=== PATIENT | female | born 1935 | race Caucasian/White ===

== ENCOUNTER 2017-05-19 07:52 | Day surgery (SDC) | payer MEDICARE, BC ==
[2017-05-19] MEDS ORDERED: Sodium Chloride 0.9% 10 ML SDV FLUSH PRN (08:30)
--- NOTE | 2017-05-19 11:47 | OR ---
DATE OF PROCEDURE: 05/19/2017 POSTOPERATIVE CARE: Postoperative care will be provided mainly at the [address] [place] [address] [facility] in conjunction with [facility]. PREOPERATIVE DIAGNOSIS: Cataract, left eye. PREOPERATIVE DIAGNOSIS: Cataract, left eye. PROCEDURE: Cataract extraction, phacoemulsification with intraocular lens placement, left eye. ANESTHESIA: Topical and intracameral. ESTIMATED BLOOD LOSS: Minimal. COMPLICATIONS: None. PATHOLOGY SPECIMENS: None. SURGICAL FINDINGS: None. INDICATION FOR PROCEDURE: The patient is a 81-year-old female with history of a visually significant cataract in the left eye, which interfered with activities of daily living. This consisted of a nuclear sclerosis cataract. Following careful discussion of the risks, benefits and alternatives to cataract extraction with intraocular lens placement including blindness and , the patient elected to proceed, and informed, written consent was obtained prior to the procedure. DESCRIPTION OF THE PROCEDURE: The patient was previously identified, and a jin placed above the left eye. All sources, including the patient, indicated that the left eye was the correct eye. The patient was subsequently taken to the operating room where standard monitors were applied. The patient was then prepped and draped in the usual sterile fashion for ophthalmic surgery. Attention was first directed at the 12 o'clock position where a paracentesis port was fashioned. Shugar solution followed by Viscoat was instilled into the eye. Attention was then directed to the 8:30 position where a triplanar incision was made in a near-clear manner using a keratome. A continuous capsulorrhexis was then made using a combination of the cystotome and Utrata forceps. Hydrodissection was achieved using a balanced salt solution, and the lens rotated nicely. Phacoemulsification was then done using a modified etiora-myt-rnaxyrk technique without complication. Phaco time was 8.24 CDE. The remaining cortex was removed using the irrigation/aspiration handpiece. Provisc was then instilled into the eye. A Technis lens, model [id number], at 20.0 diopters was then placed in the capsular bag using an [place] injector. The remaining viscoelastic was removed using the irrigation/aspiration forceps. All wounds were then checked and found to be watertight. The lid speculum and drapes were removed. Maxitrol ointment was placed in the patient's left eye, and the eye was shielded. The patient tolerated the procedure well. The patient was instructed to follow up tomorrow. All needle and sponge counts were correct at the end of the procedure. Kelly Steiner MD /[id number]
== END 2017-05-19 10:01 | disposition home or self-care (01) ==
LOC: JP.SDS 07:52
PROVIDERS: ATTEND Ophthalmology
DX: H25.12 Age-related nuclear cataract, left eye (principal); J44.9 Chronic obstructive pulmonary disease, unspecified; G45.9 Transient cerebral ischemic attack, unspecified
CPT/HCPCS: 66984; C1780; J7050

== ENCOUNTER 2017-06-02 07:56 | Day surgery (SDC) | payer MEDICARE, BC ==
[2017-06-02] MEDS ORDERED: Sodium Chloride 0.9% 10 ML Syringe FLUSH PRN (08:30)
--- NOTE | 2017-06-02 15:16 | OR ---
DATE OF PROCEDURE: 06/02/2017 POSTOPERATIVE CARE: Postoperative care will be provided mainly at the [address] [place] [address] [facility] in conjunction with [facility]. PREOPERATIVE DIAGNOSIS: Cataract, right eye. PREOPERATIVE DIAGNOSIS: Cataract, right eye. PROCEDURE: Phacoemulsification with intraocular lens placement, right eye. ANESTHESIA: Topical and intracameral. ESTIMATED BLOOD LOSS: Minimal. COMPLICATIONS: None. PATHOLOGY SPECIMENS: None. SURGICAL FINDINGS: None. INDICATION FOR PROCEDURE: The patient is a 81-year-old female with history of a visually significant cataract in the right eye, which interfered with activities of daily living. This consisted of a nuclear sclerosis cataract. Following careful discussion of the risks, benefits and alternatives to cataract extraction with intraocular lens placement including blindness and , the patient elected to proceed, and informed, written consent was obtained prior to the procedure. DESCRIPTION OF THE PROCEDURE: The patient was previously identified, and a jin placed above the right eye. All sources, including the patient, indicated that the right eye was the correct eye. The patient was subsequently taken to the operating room where standard monitors were applied. The patient was then prepped and draped in the usual sterile fashion for ophthalmic surgery. Attention was first directed at the 12 o'clock position where a paracentesis port was fashioned. Shugar solution followed by Viscoat was instilled into the eye. Attention was then directed to the 8:30 position where a triplanar incision was made in a near-clear manner using a keratome. A continuous capsulorrhexis was then made using a combination of the cystotome and Utrata forceps. Hydrodissection was achieved using a balanced salt solution, and the lens rotated nicely. Phacoemulsification was then done using a modified sodxag-ark-nwmroaz technique without complication. Phaco time was 8.24 CDE. The remaining cortex was removed using the irrigation/aspiration handpiece. Provisc was then instilled into the eye. A Technis lens, model [id number], at 21.0 diopters was then placed in the capsular bag using an [place] injector. The remaining viscoelastic was removed using the irrigation/aspiration forceps. All wounds were then checked and found to be watertight. The lid speculum and drapes were removed. Maxitrol ointment was placed in the patient's right eye, and the eye was shielded. The patient tolerated the procedure well. The patient was instructed to follow up tomorrow. All needle and sponge counts were correct at the end of the procedure. Kelly Steiner MD /[id number]
== END 2017-06-02 10:41 | disposition home or self-care (01) ==
LOC: JP.SDS 07:56
PROVIDERS: ATTEND Ophthalmology
DX: H25.11 Age-related nuclear cataract, right eye (principal); J44.9 Chronic obstructive pulmonary disease, unspecified; Z85.038 Personal history of other malignant neoplasm of large intestine; Z86.73 Personal history of transient ischemic attack (TIA), and cerebral infarction without residual deficits
CPT/HCPCS: 66984; C1780; J7050

== ENCOUNTER 2018-07-22 20:04 | Emergency (ER) | payer MEDICARE, BC ==
[2018-07-22] MEDS ORDERED: Sodium Chloride 0.9% 10 ML Syringe FLUSH PRN ×2 (21:23)
[2018-07-22] MEDS ORDERED: methylPREDNISolone Sodium Succinate 125 MG/2 ML SDV IVPUSH ONE (21:24)
[2018-07-22] MEDS ORDERED: Albuterol/Ipratropium 3.0-0.5 MG/3 ML Neb Soln NEB ONE (21:24)
[2018-07-22] MEDS ORDERED: diphenhydrAMINE 50 MG/ML SDV IVPUSH ONE (21:26)
--- NOTE | 2018-07-22 21:27 | EDM.PDOC ---
ED HPI GENERAL MEDICAL PROBLEM - General Chief Complaint: Respiratory Problem Stated Complaint: ILLNESS SOB Time Seen by Provider: 07/22/18 21:19 Source of Information: Reports: Patient, Family, RN Notes Reviewed History Limitations: Reports: No Limitations - History of Present Illness INITIAL COMMENTS - FREE TEXT/NARRATIVE: 82-year-old female presents to the emergency department day complaint of shortness of breath, she has a known history of COPD she has progressively been getting more short of breath over the last week or so wheezing cough with white sputum production. - Related Data Allergies Allergy/AdvReac Type Severity Reaction Status Date / Time adhesive tape Allergy Rash Verified 03/14/18 12:55 Iodinated Contrast- Oral and Allergy Rash Verified 03/14/18 12:55 IV Dye loteprednol [From Lotemax] Allergy Rash Verified 07/22/18 21:05 prednisone Allergy Rash Verified 03/14/18 12:55 Sulfa (Sulfonamide Allergy Rash Verified 03/14/18 12:55 Antibiotics) Home Meds: Home Meds Fluticasone Propionate [Flovent HFA 44 mcg] 2 spray IH DAILY 07/16/13 [History] Multivitamin [Multi-Vitamin Daily] 1 tab PO DAILY 07/16/13 [History] [place]-3/DHA/Epa/Fish Oil [Fish Oil Dr 500 mg Softgel] 1,200 mg PO DAILY [History] Aspirin [Children's Aspirin] 81 mg PO DAILY 05/16/17 [History] Fluticasone/Salmeterol [Advair 500-50] 1 puff INH DAILY 05/16/17 [History] atorvaSTATin [Lipitor] 10 mg PO BEDTIME 05/16/17 [History] Ipratropium/Albuterol Sulfate [Combivent Respimat Inhal [place]] 4 gm IH QID 12/26 [History] Fluticasone/Salmeterol [Advair 500-50] 1 puff INH DAILY 07/22/18 [History] Past Medical History HEENT History: Reports: Cataract, Hard of Hearing, Impaired Vision Cardiovascular History: Reports: Heart Murmur, High Cholesterol Respiratory History: Reports: Asthma, Bronchitis, Recurrent, COPD, Other (See Below) Other Respiratory History: home O2 at night Gastrointestinal History: Reports: Colon Polyp, Hemorrhoids, Other (See Below) Other Gastrointestinal History: hx of colon cancer 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: Musculoskeletal History: Reports: Back Pain, Chronic, Osteoarthritis Neurological History: Reports: Cerebral Aneurysms, Headaches, Chronic Psychiatric History: Reports: Depression, Panic Attack Oncologic (Cancer) History: Reports: Colon - Infectious Disease History Infectious Disease History: Reports: Chicken Pox, Measles, Mumps, Shingles - Past Surgical History HEENT Surgical History: Reports: Adenoidectomy, Cataract Surgery, Tonsillectomy GI Surgical History: Reports: Colon, Colonoscopy, EGD, Hernia, Inguinal, Other ( See Below) Other GI Surgeries/Procedures: hemorrhoidectomy, colon resection Female Surgical History: Reports: None Musculoskeletal Surgical History: Reports: Other (See Below) Other Musculoskeletal Surgeries/Procedures:: left foot surgery Dermatological Surgical History: Reports: None Social & Family History - Family History Family Medical History: Noncontributory - Tobacco Use Smoking Status *Q: Never Smoker - Caffeine Use Caffeine Use: Reports: Coffee - Recreational Drug Use Recreational Drug Use: No ED ROS GENERAL - Review of Systems Review Of Systems: See Below Constitutional: Reports: No Symptoms HEENT: Reports: No Symptoms Respiratory: Reports: Shortness of Breath, Cough, Sputum Cardiovascular: Reports: Dyspnea on Exertion GI/Abdominal: Reports: No Symptoms : Reports: No Symptoms ED EXAM, GENERAL - Physical Exam Exam: See Below Exam Limited By: No Limitations General Appearance: Alert, WD/WN, No Apparent Distress Head: Atraumatic, Normocephalic Neck: Normal Inspection, Supple, Non-Tender, Full Range of Motion Respiratory/Chest: Decreased Breath Sounds, Wheezing Cardiovascular: Regular Rate, Rhythm, No Murmur GI/Abdominal: Soft, Non-Tender Course - Vital Signs Last Recorded V/S: Last Vital Signs Temp 99.2 F 07/22/18 21:01 Pulse 86 07/22/18 21:01 Resp 18 07/22/18 22:34 BP 162/66 H 07/22/18 21:01 Pulse Ox 90 L 07/22/18 22:37 - Orders/Labs/Meds Orders: Active Orders 24 hr Category Date Time Status Oxygen Therapy Adult [Oxygen Therapy, ED] [RC] Care 07/22/18 22:35 Active ASDIRECTED Peripheral IV Care [RC] . DIRECTED Care 07/22/18 21:23 Active RT Aerosol Therapy [RC] ASDIRECTED Care 04/27/19 21:24 Active Peripheral IV Insertion Adult [OM.PC] Urgent Oth 07/22/18 21:23 Ordered Labs: Laboratory Tests 07/22/18 07/22/18 Range/Units 21:38 21:38 WBC 10.7 (4.5-11.0) K/uL RBC 5.32 (3.30-5.50) M/uL Hgb 14.9 D (12.0-15.0) g/dL Hct 46.5 (36.0-48.0) % MCV 87 (80-98) fL MCH 28 (27-31) pg MCHC 32 (32-36) % Plt Count 155 (150-400) K/uL Neut % (Auto) 76 H (36-66) % Lymph % (Auto) 12 L (24-44) % [place] % (Auto) 12 H (2-6) % Eos % (Auto) 0 L (2-4) % Baso % (Auto) 0 (0-1) % Sodium 138 L (140-148) mmol/L Potassium 4.3 (3.6-5.2) mmol/L Chloride 100 (100-108) mmol/L Carbon Dioxide 30 (21-32) mmol/L Anion Gap 12.3 (5.0-14.0) mmol/L BUN 13 (7-18) mg/dL Creatinine 0.7 (0.6-1.0) mg/dL Est Cr Clr Drug Dosing 53.02 mL/min Estimated GFR (MDRD) > 60 (>60) Glucose 143 H (74-106) mg/dL Calcium 8.9 (8.5-10.1) mg/dL Total Bilirubin 0.4 (0.2-1.0) mg/dL AST 28 (15-37) U/L ALT 28 (12-78) U/L Alkaline Phosphatase 75 (46-116) U/L Troponin I < 0.017 (0.000-0.056) ng/mL Total Protein 7.3 (6.4-8.2) g/dL Albumin 3.3 L (3.4-5.0) g/dL Globulin 4.0 H (2.3-3.5) g/dL Albumin/Globulin Ratio 0.8 L (1.2-2.2) Meds: Medications Discontinued Medications Generic Name Dose Route Start Last Admin Trade Name Freq PRN Reason Stop Dose Admin Albuterol/Ipratropium 3 ml 07/22/18 21:24 07/22/18 21:40 Duoneb 3.0-0.5 Mg/3 Ml NEB 07/22/18 21:25 3 ml ONETIME ONE Administration Diphenhydramine HCl 25 mg 07/22/18 21:26 07/22/18 22:27 Benadryl IVPUSH 07/22/18 21:27 25 mg ONETIME ONE Administration Methylprednisolone Sodium Succinate 125 mg 07/22/18 21:24 07/22/18 22:27 Solu-Medrol IVPUSH 07/22/18 21:25 125 mg ONETIME ONE Administration Sodium Chloride 10 ml 07/22/18 21:23 07/22/18 22:27 Saline Flush FLUSH 10 ml ASDIRECTED PRN Administration Keep Vein Open Sodium Chloride 10 ml 07/22/18 21:23 07/22/18 22:29 Saline Flush FLUSH 10 ml ASDIRECTED PRN Administration Keep Vein Open Departure - Departure Time of Disposition: 18:55 Disposition: Home, Self-Care 01 Condition: Fair Clinical Impression: COPD exacerbation - Discharge Information Referrals: Ivone Bialey PA-C [Primary Care Provider] - Forms: ED Department Discharge - My Orders Last 24 Hours: My Active Orders 07/22/18 21:23 Peripheral IV Care [RC] . DIRECTED Peripheral IV Insertion Adult [OM.PC] Urgent 07/22/18 21:24 RT Aerosol Therapy [RC] ASDIRECTED 07/22/18 22:35 Oxygen Therapy Adult [Oxygen Therapy, ED] [RC] ASDIRECTED - Assessment/Plan Last 24 Hours: My Active Orders 07/22/18 21:23 Peripheral IV Care [RC] . DIRECTED Peripheral IV Insertion Adult [OM.PC] Urgent 07/22/18 21:24 RT Aerosol Therapy [RC] ASDIRECTED 07/22/18 22:35 Oxygen Therapy Adult [Oxygen Therapy, ED] [RC] ASDIRECTED Plan: Assessment Acuity = acute Site and laterality = COPD exacerbation Etiology = unclear etiology Manifestations = dyspnea Location of injury = Home Lab values = CBC CMP unremarkable troponin was negative chest x-ray shows no acute process does show mild emphysema Plan She was given 125 mg Solu-Medrol 1+25 mg Benadryl discharge home with doxycycline 100 mg by mouth twice a day 10 days follow-up primary care 3-5 days This note was dictated using [employer] voice recognition software please call with any questions on syntax or grammar.
--- NOTE | 2018-07-22 22:37 | CRLCR ---
INDICATION: Shortness of breath. COMPARISON: 13 October 2015. IMPRESSION : No acute cardiopulmonary disease. No significant change from comparison. Mild emphysema. Dictated by Yusuf Carlos MD @ Jul 22 2018 10:34PM Signed by Dr. Yusuf Carlos @ Jul 22 2018 10:35PM
== END 2018-07-22 23:30 | disposition home or self-care (01) ==
LOC: JP.ED 20:04
DX: J44.1 Chronic obstructive pulmonary disease with (acute) exacerbation (principal); M19.90 Unspecified osteoarthritis, unspecified site; Z79.82 Long term (current) use of aspirin; Z79.899 Other long term (current) drug therapy; Z98.49 Cataract extraction status, unspecified eye; Z98.890 Other specified postprocedural states; Z91.09 Other allergy status, other than to drugs and biological substances; Z91.041 Radiographic dye allergy status; Z88.2 Allergy status to sulfonamides; Z88.8 Allergy status to other drugs, medicaments and biological substances
CPT/HCPCS: 36415; 71046; 80053; 84484; 85025; 94640; 96374; 96375; 99284; J1200; J2930; J7620-GY

== ENCOUNTER 2020-09-22 20:05 | Inpatient (IN) | payer MEDICARE, BC ==
[2020-09-22] MEDS ORDERED: Sodium Chloride 0.9% 10 ML Syringe FLUSH PRN (20:43)
[2020-09-22] MEDS ORDERED: Lactated Ringers 1,000 ML IV ONE (20:44)
--- NOTE | 2020-09-22 20:49 | EDM.PDOC ---
ED HPI GENERAL MEDICAL PROBLEM - General Chief Complaint: Gastrointestinal Problem Stated Complaint: BLOOD CLOT ISSUE Time Seen by Provider: 09/22/20 20:09 Source of Information: Reports: Patient, Family, RN Notes Reviewed History Limitations: Reports: No Limitations - History of Present Illness INITIAL COMMENTS - FREE TEXT/NARRATIVE: 85-year-old female presents emergency department day complaint of bright red blood per rectum, she has had this in the past last was about 2 years ago thought to be diverticular in nature. She has had a total of 5 loose bloody stools today. So far is not feeling lightheaded or dizzy at this time. Has had a cough for the last week or so feels more short of breath than usual does have COPD. - Related Data Allergies Allergy/AdvReac Type Severity Reaction Status Date / Time adhesive tape Allergy Rash Verified 09/22/20 20:28 Iodinated Contrast Media Allergy Rash Verified 09/22/20 20:28 [Iodinated Contrast- Oral and IV Dye] loteprednol [From Lotemax] Allergy Rash Verified 09/22/20 20:28 prednisone Allergy Rash Verified 09/22/20 20:28 Sulfa (Sulfonamide Allergy Rash Verified 09/22/20 20:28 Antibiotics) Home Meds: Home Meds Multivitamin [Multi-Vitamin Daily] 1 tab PO DAILY 07/16/13 [History] [place]-3/DHA/Epa/Fish Oil [Fish Oil Dr 500 mg Softgel] 1,200 mg PO DAILY 07/16/13 [History] Aspirin [Children's Aspirin] 81 mg PO DAILY 05/16/17 [History] Fluticasone/Salmeterol [Advair 500-50] 1 puff INH DAILY 05/16/17 [History] atorvaSTATin [Lipitor] 10 mg PO BEDTIME 05/16/17 [History] Ipratropium/Albuterol Sulfate [Combivent Respimat Inhal Finley] 4 gm IH QID 12/26/17 [History] Fluticasone/Salmeterol [Advair 500-50] 1 puff INH DAILY 07/22/18 [History] Ascorbate Calcium [Vitamin C] 500 mg PO DAILY 09/22/20 [History] Past Medical History HEENT History: Reports: Cataract, Hard of Hearing, Impaired Vision Cardiovascular History: Reports: Heart Murmur, High Cholesterol Respiratory History: Reports: Asthma, Bronchitis, Recurrent, COPD, Other (See Below) Other Respiratory History: home O2 at night Gastrointestinal History: Reports: Colon Polyp, Hemorrhoids, Other (See Below) Other Gastrointestinal History: hx of colon cancer [employer] REPA[employer]ER History: Reports: Musculoskeletal History: Reports: Back Pain, Chronic, Osteoarthritis Neurological History: Reports: Cerebral Aneurysms, Headaches, Chronic Psychiatric History: Reports: Depression, Panic Attack Oncologic (Cancer) History: Reports: Colon - Infectious Disease History Infectious Disease History: Reports: Chicken Pox, Measles, Mumps, Shingles - Past Surgical History Head Surgeries/Procedures: Reports: None HEENT Surgical History: Reports: Adenoidectomy, Cataract Surgery, Tonsillectomy Cardiovascular Surgical History: Reports: None Respiratory Surgical History: Reports: None GI Surgical History: Reports: Colon, Colonoscopy, EGD, Hernia, Inguinal, Other (See Below) Other GI Surgeries/Procedures: hemorrhoidectomy, colon resection Female Surgical History: Reports: None Neurological Surgical History: Reports: None Musculoskeletal Surgical History: Reports: Other (See Below) Other Musculoskeletal Surgeries/Procedures:: left foot surgery Oncologic Surgical History: Reports: None Dermatological Surgical History: Reports: None Social & Family History - Family History Family Medical History: No Pertinent Family History - Tobacco Use Tobacco Use Status *Q: Former Tobacco User Used Tobacco, but Quit: Yes Month/Year Tobacco Last Used: 05/18 - Caffeine Use Caffeine Use: Reports: Coffee - Recreational Drug Use Recreational Drug Use: No ED ROS GENERAL - Review of Systems Review Of Systems: See Below Constitutional: Reports: No Symptoms HEENT: Reports: No Symptoms Respiratory: Reports: Shortness of Breath, Cough. Denies: Sputum Cardiovascular: Reports: No Symptoms GI/Abdominal: Reports: Abdominal Pain (Cramping), Bloody Stool. Denies: Constipation, Diarrhea, Nausea : Reports: No Symptoms ED EXAM, GI/ABD - Physical Exam Exam: See Below Exam Limited By: No Limitations General Appearance: Alert, WD/WN, No Apparent Distress Respiratory/Chest: Chest Non-Tender, Decreased Breath Sounds. No: Respiratory Distress, Crackles, Rales, Rhonchi Cardiovascular: Regular Rate, Rhythm, No Murmur GI/Abdominal Exam: Soft, Non-Tender Rectal (Female) Exam: Normal Rectal Tone, Bloody Stool Course - Vital Signs Last Recorded V/S: Last Vital Signs Temp 97.4 F 09/23/20 15:22 Pulse 73 09/23/20 15:22 Resp 16 09/23/20 15:22 BP 153/48 H 09/23/20 15:22 Pulse Ox 97 09/23/20 15:22 - Orders/Labs/Meds Orders: Active Orders 24 hr Category Date Time Status RT Aerosol Therapy [RC] ASDIRECTED Care 09/22/20 22:47 Active Sodium Chloride 0.9% [Saline Flush] Med 09/22/20 20:43 Active 10 ml FLUSH ASDIRECTED PRN Peripheral IV Insertion Adult [OM.PC] Urgent Oth 09/22/20 20:43 Ordered Peripheral IV Insertion Adult [OM.PC] Urgent Oth 09/22/20 20:44 Ordered Medication Orders Acetaminophen (Acetaminophen 325 Mg Tab) 650 mg PO Q4H PRN PRN Reason: Pain (Mild 1-3)/fever Albuterol (Albuterol 0.083% 2.5 Mg/3 Ml Neb Soln) 2.5 mg NEB Q4H PRN PRN Reason: Shortness Of Breath/wheezing Albuterol/Ipratropium (Albuterol/Ipratropium 3.0-0.5 Mg/3 Ml Neb Soln) 3 ml NEB QIDRT [facility] Last Admin: 09/23/20 14:40 Dose: 3 ml Documented by: Admin: 09/23/20 10:58 Dose: 3 ml Documented by: Admin: 09/23/20 06:04 Dose: Not Given Documented by: Admin: 09/23/20 05:54 Dose: 3 ml Documented by: SIERRA Melatonin (Melatonin 3 Mg Tab) 6 mg PO BEDTIME PRN PRN Reason: Insomnia Morphine Sulfate (Morphine 2 Mg/Ml Syringe) 2 mg IVPUSH Q2H PRN PRN Reason: Pain (severe 7-10) Ondansetron HCl (Ondansetron 4 Mg Tab.Dis) 4 mg PO Q6H PRN PRN Reason: Nausea able to take PO Oxycodone HCl (Oxycodone 5 Mg Tab) 5 mg PO Q4H PRN PRN Reason: Pain (moderate 4-6) Pantoprazole Sodium (Pantoprazole 40 Mg Vial) 40 mg IV DAILY [facility] Last Admin: 09/23/20 10:12 Dose: 40 mg Documented by: LARSRIT Sodium Chloride (Sodium Chloride 0.9% 10 Ml Syringe) 10 ml FLUSH ASDIRECTED PRN PRN Reason: Keep Vein Open Last Admin: 09/22/20 21:46 Dose: 10 ml Documented by: YANICK Labs: Laboratory Tests 09/22/20 09/22/20 09/22/20 Range/Units 21:07 21:07 21:07 WBC 9.7 (4.5-11.0) K/uL RBC 4.76 (3.30-5.50) M/uL Hgb 14.1 (12.0-15.0) g/dL Hct 42.4 (36.0-48.0) % MCV 89 (80-98) fL MCH 30 (27-31) pg MCHC 33 (32-36) % Plt Count 207 (150-400) K/uL Neut % (Auto) 71.4 H (36-66) % Lymph % (Auto) 19.4 L (24-44) % Shelby % (Auto) 8.7 H (2-6) % Eos % (Auto) 0.2 L (2-4) % Baso % (Auto) 0.3 (0-1) % PT 11.1 (9.5-12.0) sec INR 1.02 (0.80-1.20) Sodium 143 (140-148) mmol/L Potassium 3.8 (3.6-5.2) mmol/L Chloride 104 (100-108) mmol/L Carbon Dioxide 30 (21-32) mmol/L Anion Gap 8.9 (5.0-14.0) mmol/L BUN 18 (7-18) mg/dL Creatinine 0.7 (0.6-1.0) mg/dL Est Cr Clr Drug Dosing 50.37 mL/min Estimated GFR (MDRD) > 60 (>60) Glucose 99 (74-106) mg/dL Calcium 8.4 L (8.5-10.1) mg/dL Total Bilirubin 0.4 (0.2-1.0) mg/dL AST 20 (15-37) U/L ALT 28 (12-78) U/L Alkaline Phosphatase 79 (46-116) U/L Total Protein 6.5 (6.4-8.2) g/dL Albumin 3.4 (3.4-5.0) g/dL Globulin 3.1 (2.3-3.5) g/dL Albumin/Globulin Ratio 1.1 L (1.2-2.2) Blood Type Gel Antibody Screen 09/22/20 Range/Units 21:07 WBC (4.5-11.0) K/uL RBC (3.30-5.50) M/uL Hgb (12.0-15.0) g/dL Hct (36.0-48.0) % MCV (80-98) fL MCH (27-31) pg MCHC (32-36) % Plt Count (150-400) K/uL Neut % (Auto) (36-66) % Lymph % (Auto) (24-44) % Shelby % (Auto) (2-6) % Eos % (Auto) (2-4) % Baso % (Auto) (0-1) % PT (9.5-12.0) sec INR (0.80-1.20) Sodium (140-148) mmol/L Potassium (3.6-5.2) mmol/L Chloride (100-108) mmol/L Carbon Dioxide (21-32) mmol/L Anion Gap (5.0-14.0) mmol/L BUN (7-18) mg/dL Creatinine (0.6-1.0) mg/dL Est Cr Clr Drug Dosing mL/min Estimated GFR (MDRD) (>60) Glucose (74-106) mg/dL Calcium (8.5-10.1) mg/dL Total Bilirubin (0.2-1.0) mg/dL AST (15-37) U/L ALT (12-78) U/L Alkaline Phosphatase (46-116) U/L Total Protein (6.4-8.2) g/dL Albumin (3.4-5.0) g/dL Globulin (2.3-3.5) g/dL Albumin/Globulin Ratio (1.2-2.2) Blood Type O POSITIVE Gel Antibody Screen Negative Meds: Medications Generic Name Dose Route Start Last Admin Trade Name Freq PRN Reason Stop Dose Admin Acetaminophen 650 mg 09/22/20 23:46 Acetaminophen 325 Mg Tab PO Q4H PRN Pain (Mild 1-3)/fever Albuterol 2.5 mg 09/22/20 23:46 Albuterol 0.083% 2.5 Mg/3 Ml Neb Soln NEB Q4H PRN Shortness Of Breath/wheezing Albuterol/Ipratropium 3 ml 09/23/20 07:00 09/23/20 14:40 Albuterol/Ipratropium 3.0-0.5 Mg/3 Ml Neb Soln NEB 3 ml QIDRT MICHAEL Administration Melatonin 6 mg 09/22/20 23:46 Melatonin 3 Mg Tab PO BEDTIME PRN Insomnia Morphine Sulfate 2 mg 09/22/20 23:46 Morphine 2 Mg/Ml Syringe IVPUSH Q2H PRN Pain (severe 7-10) Ondansetron HCl 4 mg 09/22/20 23:46 Ondansetron 4 Mg Tab.Dis PO Q6H PRN Nausea able to take PO Oxycodone HCl 5 mg 09/22/20 23:46 Oxycodone 5 Mg Tab PO Q4H PRN Pain (moderate 4-6) Pantoprazole Sodium 40 mg 09/23/20 09:00 09/23/20 10:12 Pantoprazole 40 Mg Vial IV 40 mg DAILY MICHAEL Administration Sodium Chloride 10 ml 09/22/20 20:43 09/22/20 21:46 Sodium Chloride 0.9% 10 Ml Syringe FLUSH 10 ml ASDIRECTED PRN Administration Keep Vein Open Discontinued Medications Generic Name Dose Route Start Last Admin Trade Name Freq PRN Reason Stop Dose Admin Albuterol 2.5 mg 09/22/20 22:47 09/22/20 23:06 Albuterol 0.083% 2.5 Mg/3 Ml Neb Soln NEB 09/22/20 22:48 2.5 mg ONETIME ONE Administration Albuterol/Ipratropium 3 ml 09/23/20 06:00 Albuterol/Ipratropium 3.0-0.5 Mg/3 Ml Neb Soln NEB QID MICHAEL Bisacodyl 10 mg 09/23/20 13:00 09/23/20 13:16 Bisacodyl 5 Mg Tab PO 09/23/20 13:01 10 mg ONETIME ONE Administration Lactated Ringer's 1,000 mls @ 999 mls/hr 09/22/20 20:44 09/22/20 21:12 Ringers, Lactated IV 09/22/20 21:44 600 mls/hr BOLUS ONE Infusion Sodium Chloride 1,000 mls @ 100 mls/hr 09/22/20 23:46 09/23/20 10:12 Normal Saline IV 100 mls/hr ASDIRECTED MICHAEL Administration Ceftriaxone Sodium 1 gm/ 50 mls @ 200 mls/hr 09/22/20 23:46 09/23/20 00:24 Sodium Chloride IV 09/29/20 23:47 200 mls/hr Q24H MICHAEL Administration Pantoprazole Sodium 80 mg/ 100 mls @ 200 mls/hr 09/22/20 23:46 09/23/20 00:24 Sodium Chloride IV 09/23/20 00:15 200 mls/hr .BOLUS ONE Administration Ceftriaxone Sodium 1 gm/ 50 mls @ 100 mls/hr 09/23/20 21:00 Sodium Chloride IV Q24H MICHAEL Pantoprazole Sodium Confirm 09/23/20 00:11 09/23/20 00:25 Pantoprazole 40 Mg Vial Administered 09/23/20 00:12 Not Given Dose 80 mg .ROUTE .STK-MED ONE Pantoprazole Sodium Confirm 09/23/20 00:12 09/23/20 00:25 Pantoprazole 40 Mg Vial Administered 09/23/20 00:13 Not Given Dose 40 mg .ROUTE .STK-MED ONE Polyethylene Glycol 238 gm 09/23/20 14:00 09/23/20 13:16 Polyethylene Glycol 3350 Powder 238 Gm Bot PO 09/23/20 14:01 238 gm ONETIME ONE Administration Departure - Departure Time of Disposition: 18:04 Disposition: Admitted As Inpatient 68 Condition: Fair Clinical Impression: GI bleed Qualifiers: GI bleed type/associated pathology: unspecified gastrointestinal hemorrhage type Qualified Code(s): K92.2 - Gastrointestinal hemorrhage, unspecified - Discharge Information Sepsis Event Note (ED) - Evaluation Sepsis Screening Result: No Definite Risk - My Orders Last 24 Hours: My Active Orders 09/22/20 20:43 Sodium Chloride 0.9% [Saline Flush] 10 ml FLUSH ASDIRECTED PRN Peripheral IV Insertion Adult [OM.PC] Urgent 09/22/20 20:44 Peripheral IV Insertion Adult [OM.PC] Urgent - Assessment/Plan Last 24 Hours: My Active Orders 09/22/20 20:43 Sodium Chloride 0.9% [Saline Flush] 10 ml FLUSH ASDIRECTED PRN Peripheral IV Insertion Adult [OM.PC] Urgent 09/22/20 20:44 Peripheral IV Insertion Adult [OM.PC] Urgent Plan: Assessment Acuity = acute Site and laterality = bright red blood per rectum Etiology = unknown Manifestations = none Location of injury = Home Lab values = CBC, CMP unremarkable Plan Call discussed case with hospitalist on-call at 1999 kindly agreed to come evaluate patient emergency This note was dictated using Rebit voice recognition software please call with any questions on syntax or grammar.
[2020-09-22] MEDS ORDERED: Albuterol 0.083% 2.5 MG/3 ML Neb Soln NEB ONE (22:47)
--- NOTE | 2020-09-22 23:16 | PCM.HP.2 ---
H&P History of Present Illness - General Date of Service: 09/22/20 Admit Problem/Dx: Admission Diagnosis/Problem Admission Diagnosis/Problem Gastrointestinal hemorrhage Source of Information: Patient, Family (Daughter) History Limitations: Reports: No Limitations - History of Present Illness Initial Comments - Free Text/Narative: chief complaint: bloody stools. This is a 85 year old female presents to the ER with Daughter, with concerns of 5 bloody stools started at 4:30 pm. today. She denies any nausea, vomiting, but has had a upset stomach for a few days. She has COPD and feels that has been worse the past month with increase shortness of breath and generalized not feeling well. denies chest pain, dizziness or weakness. previous tobacco use- but has quit 2 months ago Onset of Symptoms: Reports: Today Symptom Onset Date: 09/22/20 Symptom Onset Time: 16:30 Duration of Symptoms: Reports: Resolved Prior to Arrival Location: Reports: Abdomen Quality: Reports: Same as Previous Episode (reports 2 years ago had di verticulitis and stomach ulcer) Severity: Moderate Improves with: Reports: None Worsens with: Reports: None Associated Symptoms: Reports: No Other Symptoms - Related Data Allergies/Adverse Reactions: Allergies Allergy/AdvReac Type Severity Reaction Status Date / Time adhesive tape Allergy Rash Verified 09/22/20 20:28 Iodinated Contrast Media Allergy Rash Verified 09/22/20 20:28 [Iodinated Contrast- Oral and IV Dye] loteprednol [From Lotemax] Allergy Rash Verified 09/22/20 20:28 prednisone Allergy Rash Verified 09/22/20 20:28 Sulfa (Sulfonamide Allergy Rash Verified 09/22/20 20:28 Antibiotics) Home Medications: Home Meds Multivitamin [Multi-Vitamin Daily] 1 tab PO DAILY 07/16/13 [History] [place]-3/DHA/Epa/Fish Oil [Fish Oil Dr 500 mg Softgel] 1,200 mg PO DAILY 07/16/13 [History] Aspirin [Children's Aspirin] 81 mg PO DAILY 05/16/17 [History] Fluticasone/Salmeterol [Advair 500-50] 1 puff INH DAILY 05/16/17 [History] atorvaSTATin [Lipitor] 10 mg PO BEDTIME 05/16/17 [History] Ipratropium/Albuterol Sulfate [Combivent Respimat Inhal [place]] 4 gm IH QID 12/26/17 [History] Fluticasone/Salmeterol [Advair 500-50] 1 puff INH DAILY 07/22/18 [History] Ascorbate Calcium [Vitamin C] 500 mg PO DAILY 09/22/20 [History] Past Medical History HEENT History: Reports: Cataract, Hard of Hearing, Impaired Vision Cardiovascular History: Reports: Heart Murmur, High Cholesterol Respiratory History: Reports: Asthma, Bronchitis, Recurrent, COPD, Other (See Below) Other Respiratory History: home O2 at night Gastrointestinal History: Reports: Colon Polyp, Hemorrhoids, Other (See Below) Other Gastrointestinal History: hx of colon cancer [employer]PER[employer] History: Reports: Musculoskeletal History: Reports: Back Pain, Chronic, Osteoarthritis Neurological History: Reports: Cerebral Aneurysms, Headaches, Chronic Psychiatric History: Reports: Depression, Panic Attack Oncologic (Cancer) History: Reports: Colon - Infectious Disease History Infectious Disease History: Reports: Chicken Pox, Measles, Mumps, Shingles - Past Surgical History Head Surgeries/Procedures: Reports: None HEENT Surgical History: Reports: Adenoidectomy, Cataract Surgery, Tonsillectomy Cardiovascular Surgical History: Reports: None Respiratory Surgical History: Reports: None GI Surgical History: Reports: Colon, Colonoscopy, EGD, Hernia, Inguinal, Other ( See Below) Other GI Surgeries/Procedures: hemorrhoidectomy, colon resection Female Surgical History: Reports: None Neurological Surgical History: Reports: None Musculoskeletal Surgical History: Reports: Other (See Below) Other Musculoskeletal Surgeries/Procedures:: left foot surgery Oncologic Surgical History: Reports: None Dermatological Surgical History: Reports: None Social & Family History - Family History Family Medical History: No Pertinent Family History - Tobacco Use Tobacco Use Status *Q: Former Tobacco User Used Tobacco, but Quit: Yes Month/Year Tobacco Last Used: 05/18 - Caffeine Use Caffeine Use: Reports: Coffee - Recreational Drug Use Recreational Drug Use: No - Living Situation & Occupation Living situation: Reports: Alone (lives alone between [facility] by [place] Pleitez. Has 5 children who check on her and assist her as needed.) H&P Review of Systems - Review of Systems: Review Of Systems: See Below General: Reports: Other (reports bloody stools x 5 and worsen shortness of breath - has COPD) HEENT: Reports: Glasses Pulmonary: Reports: Shortness of Breath (chronic from COPD), Wheezing (chronic COPD) Cardiovascular: Reports: No Symptoms Gastrointestinal: Reports: Abdominal Pain (upset stomach), Bloody Stool (5 bloody stool starting at 4:30 pm, none since arrival to ER) Genitourinary: Reports: No Symptoms Musculoskeletal: Reports: No Symptoms Skin: Reports: No Symptoms Psychiatric: Reports: No Symptoms Neurological: Reports: No Symptoms Hematologic/Lymphatic: Reports: No Symptoms Immunologic: Reports: Anaphylaxis (multi allergies) Exam - Exam Exam: See Below - Vital Signs Vital Signs: Last Vital Signs Temp 97.3 F 09/22/20 20:31 Pulse 73 09/22/20 22:00 Resp 16 09/22/20 20:31 BP 145/55 H 09/22/20 22:00 Pulse Ox 94 L 09/22/20 22:00 Weight: 148 lb - Exam Quality Assessment: Supplemental Oxygen (O2 at 2 liter per NC) General: Alert, Oriented, Other (pleasant, neat and well groomed. polite, no distress noted) HEENT: PERRLA, Hearing Intact, Mucosa Moist & Arc[place], Nares Patent, Normal Nasal Septum, Posterior Pharynx Clear, Conjunctiva Clear, EOMI, EACs Clear, TMs Clear Neck: Supple, Trachea Midline, 2 Lungs: Normal Respiratory Effort, Decreased Breath Sounds, Crackles, Wheezing Cardiovascular: Regular Rate, Regular Rhythm, Normal S1, Normal S2 GI/Abdominal Exam: Normal Bowel Sounds, Soft, Non-Tender, No Distention, No Abnormal Bruit (Female) Exam: Deferred Rectal (Female) Exam: Deferred Extremities: Normal Inspection, Normal Range of Motion, Non-Tender, No Pedal Edema, Normal Capillary Refill Peripheral Pulses: 2+: Radial (L), Radial (R), Dorsalis Pedis (L), Dorsalis Pedis (R) Skin: Warm, Dry, Intact Neurological: Cranial Nerves Intact, Reflexes Equal Bilateral Neuro Extensive - Mental Status: Alert, Oriented x3, Normal Mood/Affect, Normal Cognition Neuro Extensive - Motor, Sensory, Reflexes: CN II-XII Intact, Normal Gait, Normal Reflexes Psychiatric: Alert, Normal Affect, Normal Mood - Patient Data Lab Results Last 24 hrs: Laboratory Results - last 24 hr 09/22/20 09/22/20 09/22/20 Range/Units 21:07 21:07 21:07 WBC 9.7 (4.5-11.0) K/uL RBC 4.76 (3.30-5.50) M/uL Hgb 14.1 (12.0-15.0) g/dL Hct 42.4 (36.0-48.0) % MCV 89 (80-98) fL MCH 30 (27-31) pg MCHC 33 (32-36) % Plt Count 207 (150-400) K/uL Neut % (Auto) 71.4 H (36-66) % Lymph % (Auto) 19.4 L (24-44) % Boyd % (Auto) 8.7 H (2-6) % Eos % (Auto) 0.2 L (2-4) % Baso % (Auto) 0.3 (0-1) % PT 11.1 (9.5-12.0) sec INR 1.02 (0.80-1.20) Sodium 143 (140-148) mmol/L Potassium 3.8 (3.6-5.2) mmol/L Chloride 104 (100-108) mmol/L Carbon Dioxide 30 (21-32) mmol/L Anion Gap 8.9 (5.0-14.0) mmol/L BUN 18 (7-18) mg/dL Creatinine 0.7 (0.6-1.0) mg/dL Est Cr Clr Drug Dosing 50.37 mL/min Estimated GFR (MDRD) > 60 (>60) Glucose 99 (74-106) mg/dL Calcium 8.4 L (8.5-10.1) mg/dL Total Bilirubin 0.4 (0.2-1.0) mg/dL AST 20 (15-37) U/L ALT 28 (12-78) U/L Alkaline Phosphatase 79 (46-116) U/L Total Protein 6.5 (6.4-8.2) g/dL Albumin 3.4 (3.4-5.0) g/dL Globulin 3.1 (2.3-3.5) g/dL Albumin/Globulin Ratio 1.1 L (1.2-2.2) Blood Type Gel Antibody Screen 09/22/20 Range/Units 21:07 WBC (4.5-11.0) K/uL RBC (3.30-5.50) M/uL Hgb (12.0-15.0) g/dL Hct (36.0-48.0) % MCV (80-98) fL MCH (27-31) pg MCHC (32-36) % Plt Count (150-400) K/uL Neut % (Auto) (36-66) % Lymph % (Auto) (24-44) % Boyd % (Auto) (2-6) % Eos % (Auto) (2-4) % Baso % (Auto) (0-1) % PT (9.5-12.0) sec INR (0.80-1.20) Sodium (140-148) mmol/L Potassium (3.6-5.2) mmol/L Chloride (100-108) mmol/L Carbon Dioxide (21-32) mmol/L Anion Gap (5.0-14.0) mmol/L BUN (7-18) mg/dL Creatinine (0.6-1.0) mg/dL Est Cr Clr Drug Dosing mL/min Estimated GFR (MDRD) (>60) Glucose (74-106) mg/dL Calcium (8.5-10.1) mg/dL Total Bilirubin (0.2-1.0) mg/dL AST (15-37) U/L ALT (12-78) U/L Alkaline Phosphatase (46-116) U/L Total Protein (6.4-8.2) g/dL Albumin (3.4-5.0) g/dL Globulin (2.3-3.5) g/dL Albumin/Globulin Ratio (1.2-2.2) Blood Type O POSITIVE Gel Antibody Screen Negative Result Diagrams: 09/22/20 21:07 09/22/20 21:07 Sepsis Event Note - Evaluation Sepsis Screening Result: No Definite Risk - Focused Exam Vital Signs: Vital Signs Temp Pulse Resp BP Pulse Ox 09/22/20 22:00 73 145/55 H 94 L 09/22/20 20:31 97.3 F 83 16 168/67 H 94 L 09/22/20 20:29 97.3 F 83 16 168/67 H 94 L - Problem List (1) GI bleed SNOMED Code(s): 87436729 ICD Code: K92.2 - GASTROINTESTINAL HEMORRHAGE, UNSPECIFIED Status: Acute Priority: High Current Visit: Yes Qualifiers: GI bleed type/associated pathology: unspecified gastrointestinal hemorrhage type Qualified Code(s): K92.2 - Gastrointestinal hemorrhage, unspecified (2) COPD exacerbation SNOMED Code(s): 359262352 ICD Code: J44.1 - CHRONIC OBSTRUCTIVE PULMONARY DISEASE W (ACUTE) EXACERBATION Status: Acute Priority: High Current Visit: Yes Problem List Initiated/Reviewed/Updated: Yes Orders Last 24hrs: Active Orders 24 hr Category Date Time Status Patient Status Manage Transfer [TRANSFER] Routine ADT 09/22/20 22:55 Active Peripheral IV Care [RC] . DIRECTED Care 09/22/20 20:43 Active RT Aerosol Therapy [RC] ASDIRECTED Care 09/22/20 22:47 Active Chest 1V Frontal [CR] Urgent Exams 09/22/20 20:45 Taken Sodium Chloride 0.9% [Saline Flush] Med 09/22/20 20:43 Active 10 ml FLUSH ASDIRECTED PRN Peripheral IV Insertion Adult [OM.PC] Urgent Oth 09/22/20 20:43 Ordered Peripheral IV Insertion Adult [OM.PC] Urgent Oth 09/22/20 20:44 Ordered Resuscitation Status Routine Resus Stat 09/22/20 22:58 Ordered Medication Orders Sodium Chloride (Sodium Chloride 0.9% 10 Ml Syringe) 10 ml FLUSH ASDIRECTED PRN PRN Reason: Keep Vein Open Last Admin: 09/22/20 21:46 Dose: 10 ml Documented by: YANICK Assessment/Plan Comment:: Assessment/Plan Comment:: ASSESSMENT AND PLAN OF CARE- GI Bleed, COPD WITH exacerbation She reports 5 bloody stool today starting at 4:30 pm. She reports no chest pain, shortness of breath worse and generalized not feeling well for one month. ER workup shows elevated WBC 9.7, hgb 14.1, hct 42.4, PLT 207, Chemistry Na+ 143, K+ 3.8, Cl 104, anion gap. 8.9, BUN 18, Cr 0.7, glucose 99, Co2 30, INR 1.02 PT 11.1 Plan to hospital admission for further care and treatment. Patient agree with plan of care. GI Bleed- reports 5 bloody stool at home, none since being in ER/Hospital. Hemoglobin 14.1. Past history of stomach ulcer and diverticulitis. Consulted with Dr. Kaplan, Surgeon, recommend CT abdomen-pelvis in am (allergy to IVP dye) with planned colonoscopy on Tuesday or by either Dr. Islas or Dr. Kaplan. Discussed with Daughter and Mrs. Dutta - agree with plan of care. -Admit to [address] [place] [address] for further monitoring -IV fluids Normal Saline 100 ml/hr -IV Protonix 80 mg. once then IV Protonix 40 mg daily -regular diet -Blood type and crossed -Surgeon consult- colonoscopy on Tuesday or -am labs CBC, BMP COPD exacerbation- reports not feeling well for about one month, increasing shortness of breath -IV Fluids for rehydration NS at 100 ml/hr -IV Antibiotic; Rocephin 1 gram IV every 24 hours -oxygen to keep sats greater than 95% -schedule Duo nebs every 6 hours, Albuterol nebs every 4 hours prn -Advise to notify nurses of any chest pain or other symptoms -And a.m. labs: CBC, BMP Maintenance issues -Orders home meds: chronic medication -Nutrition: regular diet -Landin catheter -not indicated at this time -DVT - SCD -PPI; IV Protonix 40mg daily CODE STATUS: DNR/DNI Admission status: Admit to [address] [place] [address] Admission justification. This patient will be admitted for inpatient services and is medically appropriate meeting medical necessity for inpatient admission as outlined in my documentation. I reasonably expect the patient will require inpatient services that span. Time over 2 midnights. I reasonably expect this patient to be discharged or transferred within 96 hours after admission to the critical access hospital. Disposition: home with Family Primary care provider: Ulises Bailey [facility] Hospitalist: Dr. Duenas - Mortality Measure Prognosis:: Good - Mortality Measure Prognosis:: Good
[2020-09-22] MEDS ORDERED: Pantoprazole 80 MG in Sodium Chloride 0.9% 100 ML IV ONE (23:46)
[2020-09-22] MEDS ORDERED: oxyCODONE 5 MG Tab PO PRN (23:46)
[2020-09-22] MEDS ORDERED: Acetaminophen 325 MG Tab PO PRN (23:46)
[2020-09-22] MEDS ORDERED: Albuterol 0.083% 2.5 MG/3 ML Neb Soln NEB PRN (23:46)
[2020-09-22] MEDS ORDERED: cefTRIAXone 1 GM in Sodium Chloride 0.9% 50 ML IV SCH (23:46)
[2020-09-22] MEDS ORDERED: Morphine 2 MG/ML SYRINGE IVPUSH PRN (23:46)
[2020-09-22] MEDS ORDERED: Ondansetron 4 MG Tab.DIS PO PRN (23:46)
[2020-09-22] MEDS ORDERED: Melatonin 3 MG Tab PO PRN (23:46)
[2020-09-23] MEDS ORDERED: Pantoprazole 40 MG Vial ONE ×2 (00:11→00:12)
[2020-09-23] MEDS: Sodium Chloride 0.9% 1,000 ML IV SCH ×2 (00:25→10:12)
[2020-09-23] MEDS: Albuterol/Ipratropium 3.0-0.5 MG/3 ML Neb Soln NEB SCH ×5 (05:54→22:23)
[2020-09-23] MEDS ORDERED: Albuterol/Ipratropium 3.0-0.5 MG/3 ML Neb Soln NEB SCH (06:00)
--- NOTE | 2020-09-23 08:47 | CR ---
CHEST: Portable 09/22/2020 at 9:19 PM CLINICAL HISTORY:COPD, SOB COMPARISON:07/22/2018 FINDINGS: The heart size, pulmonary vascularity and hilar structures are normal. No infiltrate effusion or pneumothorax is seen. Lungs are hyperaerated. There are atherosclerotic changes in the aorta. IMPRESSION: No acute cardiopulmonary process. Emphysematous changes
--- NOTE | 2020-09-23 09:05 | CT ---
Abdomen Pelvis wo Cont CLINICAL HISTORY: Lower GI bleed COMPARISON: 08/28/2018. TECHNIQUE: Axial tomographic images are obtained from the dome of the diaphragm to the pubic symphysis without IV contrast enhancement. No oral contrast was used. The dosage reduction and iterative reconstruction techniques employed. FINDINGS: The lung bases are hyperaerated but clear. The liver shows no mass or inflammatory change. The gallbladder has a normal contour. The spleen has a normal size and shape. The pancreas shows no mass or inflammatory change. The adrenal glands appear normal bilaterally. The kidneys show no stones or hydronephrosis. The aorta shows moderate atheromatous plaque without aneurysm. There is no suspicious retroperitoneal adenopathy. The small intestinal configuration is nonacute. There is severe diffuse diverticulosis. There is thickening in the sigmoid colon which is similar to prior study. No stranding in the pericolic fat is seen on the current exam. IMPRESSION: Severe diverticulosis without definite evidence of diverticulitis. Thickening of the sigmoid colon may represent some muscular hypertrophy. Evaluation for lower GI bleed is limited due to lack of IV contrast. Advanced atherosclerotic vascular disease
[2020-09-23] MEDS: Pantoprazole 40 MG Vial IV SCH (10:12)
--- NOTE | 2020-09-23 11:04 | PCM.PN ---
- General Info Date of Service: 09/23/20 Subjective Update: No acute events overnight. Patient did have a couple of moderate-sized bowel movements that were mostly blood. This was a maroon-colored blood. No significant abdominal pain or nausea. Shortness of breath is stable and about the same as it has been for the past month. No chest pain. No fevers. Hemoglobin with only a slight drop overnight. - Patient Data Vitals - Most Recent: Last Vital Signs Temp 36.5 C 09/23/20 10:36 Pulse 58 L 09/23/20 10:36 Resp 16 09/23/20 10:36 BP 151/53 H 09/23/20 10:36 Pulse Ox 98 09/23/20 10:36 Weight - Most Recent: 63.9 kg I&O - Last 24 Hours: Intake & Output 09/22/20 09/23/20 09/23/20 22:59 06:59 14:59 Intake Total 630 Balance 630 Lab Results Last 24 Hours: Laboratory Results - last 24 hr 09/22/20 09/22/20 09/22/20 Range/Units 21:07 21:07 21:07 WBC 9.7 (4.5-11.0) K/uL RBC 4.76 (3.30-5.50) M/uL Hgb 14.1 (12.0-15.0) g/dL Hct 42.4 (36.0-48.0) % MCV 89 (80-98) fL MCH 30 (27-31) pg MCHC 33 (32-36) % Plt Count 207 (150-400) K/uL Neut % (Auto) 71.4 H (36-66) % Lymph % (Auto) 19.4 L (24-44) % [place] % (Auto) 8.7 H (2-6) % Eos % (Auto) 0.2 L (2-4) % Baso % (Auto) 0.3 (0-1) % PT 11.1 (9.5-12.0) sec INR 1.02 (0.80-1.20) Sodium 143 (140-148) mmol/L Potassium 3.8 (3.6-5.2) mmol/L Chloride 104 (100-108) mmol/L Carbon Dioxide 30 (21-32) mmol/L Anion Gap 8.9 (5.0-14.0) mmol/L BUN 18 (7-18) mg/dL Creatinine 0.7 (0.6-1.0) mg/dL Est Cr Clr Drug Dosing 50.37 mL/min Estimated GFR (MDRD) > 60 (>60) Glucose 99 (74-106) mg/dL Calcium 8.4 L (8.5-10.1) mg/dL Total Bilirubin 0.4 (0.2-1.0) mg/dL AST 20 (15-37) U/L ALT 28 (12-78) U/L Alkaline Phosphatase 79 (46-116) U/L Total Protein 6.5 (6.4-8.2) g/dL Albumin 3.4 (3.4-5.0) g/dL Globulin 3.1 (2.3-3.5) g/dL Albumin/Globulin Ratio 1.1 L (1.2-2.2) Blood Type Gel Antibody Screen 09/22/20 09/23/20 09/23/20 Range/Units 21:07 06:12 06:12 WBC 8.2 (4.5-11.0) K/uL RBC 4.32 (3.30-5.50) M/uL Hgb 12.8 (12.0-15.0) g/dL Hct 39.4 (36.0-48.0) % MCV 91 (80-98) fL MCH 30 (27-31) pg MCHC 33 (32-36) % Plt Count 199 (150-400) K/uL Neut % (Auto) 50.7 (36-66) % Lymph % (Auto) 37.1 (24-44) % [place] % (Auto) 10.8 H (2-6) % Eos % (Auto) 0.7 L (2-4) % Baso % (Auto) 0.7 (0-1) % PT (9.5-12.0) sec INR (0.80-1.20) Sodium 146 (140-148) mmol/L Potassium 4.6 (3.6-5.2) mmol/L Chloride 109 H (100-108) mmol/L Carbon Dioxide 34 H (21-32) mmol/L Anion Gap 7.6 (5.0-14.0) mmol/L BUN 14 (7-18) mg/dL Creatinine 0.8 (0.6-1.0) mg/dL Est Cr Clr Drug Dosing 45.04 mL/min Estimated GFR (MDRD) > 60 (>60) Glucose 101 (74-106) mg/dL Calcium 8.0 L (8.5-10.1) mg/dL Total Bilirubin (0.2-1.0) mg/dL AST (15-37) U/L ALT (12-78) U/L Alkaline Phosphatase (46-116) U/L Total Protein (6.4-8.2) g/dL Albumin (3.4-5.0) g/dL Globulin (2.3-3.5) g/dL Albumin/Globulin Ratio (1.2-2.2) Blood Type O POSITIVE Gel Antibody Screen Negative Med Orders - Current: Current Medications Acetaminophen (Acetaminophen 325 Mg Tab) 650 mg PO Q4H PRN PRN Reason: Pain (Mild 1-3)/fever Albuterol (Albuterol 0.083% 2.5 Mg/3 Ml Neb Soln) 2.5 mg NEB Q4H PRN PRN Reason: Shortness Of Breath/wheezing Albuterol/Ipratropium (Albuterol/Ipratropium 3.0-0.5 Mg/3 Ml Neb Soln) 3 ml NEB QIDRT [facility] Last Admin: 09/23/20 10:58 Dose: 3 ml Documented by: Melatonin (Melatonin 3 Mg Tab) 6 mg PO BEDTIME PRN PRN Reason: Insomnia Morphine Sulfate (Morphine 2 Mg/Ml Syringe) 2 mg IVPUSH Q2H PRN PRN Reason: Pain (severe 7-10) Ondansetron HCl (Ondansetron 4 Mg Tab.Dis) 4 mg PO Q6H PRN PRN Reason: Nausea able to take PO Oxycodone HCl (Oxycodone 5 Mg Tab) 5 mg PO Q4H PRN PRN Reason: Pain (moderate 4-6) Pantoprazole Sodium (Pantoprazole 40 Mg Vial) 40 mg IV DAILY [facility] Last Admin: 09/23/20 10:12 Dose: 40 mg Documented by: Sodium Chloride (Sodium Chloride 0.9% 10 Ml Syringe) 10 ml FLUSH ASDIRECTED PRN PRN Reason: Keep Vein Open Last Admin: 09/22/20 21:46 Dose: 10 ml Documented by: Discontinued Medications Albuterol (Albuterol 0.083% 2.5 Mg/3 Ml Neb Soln) 2.5 mg NEB ONETIME ONE Stop: 09/22/20 22:48 Last Admin: 09/22/20 23:06 Dose: 2.5 mg Documented by: Albuterol/Ipratropium (Albuterol/Ipratropium 3.0-0.5 Mg/3 Ml Neb Soln) 3 ml NEB QID [facility] Lactated Ringer's (Ringers, Lactated) 1,000 mls @ 999 mls/hr IV BOLUS ONE Stop: 09/22/20 21:44 Last Infusion: 09/22/20 21:12 Dose: 600 mls/hr Documented by: Sodium Chloride (Normal Saline) 1,000 mls @ 100 mls/hr IV ASDIRECTED [facility] Last Admin: 09/23/20 10:12 Dose: 100 mls/hr Documented by: Ceftriaxone Sodium 1 gm/ (Sodium Chloride) 50 mls @ 200 mls/hr IV Q24H MICHAEL Stop: 09/29/20 23:47 Last Admin: 09/23/20 00:24 Dose: 200 mls/hr Documented by: Pantoprazole Sodium 80 mg/ (Sodium Chloride) 100 mls @ 200 mls/hr IV .BOLUS ONE Stop: 09/23/20 00:15 Last Admin: 09/23/20 00:24 Dose: 200 mls/hr Documented by: Ceftriaxone Sodium 1 gm/ (Sodium Chloride) 50 mls @ 100 mls/hr IV Q24H [facility] Pantoprazole Sodium (Pantoprazole 40 Mg Vial) Confirm Administered Dose 80 mg .ROUTE .STK-MED ONE Stop: 09/23/20 00:12 Last Admin: 09/23/20 00:25 Dose: Not Given Documented by: Pantoprazole Sodium (Pantoprazole 40 Mg Vial) Confirm Administered Dose 40 mg .ROUTE .STK-MED ONE Stop: 09/23/20 00:13 Last Admin: 09/23/20 00:25 Dose: Not Given Documented by: - Exam Quality Assessment: Supplemental Oxygen General: Alert, Oriented, Cooperative, No Acute Distress Lungs: Clear to Auscultation, Normal Respiratory Effort Cardiovascular: Regular Rate, Regular Rhythm GI/Abdominal Exam: Normal Bowel Sounds, Soft, Non-Tender, No Distention Extremities: No Pedal Edema. No: Increased Warmth Skin: Warm, Dry Psy/Mental Status: Alert, Normal Affect - Patient Data Lab Results Last 24 hrs: Laboratory Results - last 24 hr 09/22/20 09/22/20 09/22/20 Range/Units 21:07 21:07 21:07 WBC 9.7 (4.5-11.0) K/uL RBC 4.76 (3.30-5.50) M/uL Hgb 14.1 (12.0-15.0) g/dL Hct 42.4 (36.0-48.0) % MCV 89 (80-98) fL MCH 30 (27-31) pg MCHC 33 (32-36) % Plt Count 207 (150-400) K/uL Neut % (Auto) 71.4 H (36-66) % Lymph % (Auto) 19.4 L (24-44) % [place] % (Auto) 8.7 H (2-6) % Eos % (Auto) 0.2 L (2-4) % Baso % (Auto) 0.3 (0-1) % PT 11.1 (9.5-12.0) sec INR 1.02 (0.80-1.20) Sodium 143 (140-148) mmol/L Potassium 3.8 (3.6-5.2) mmol/L Chloride 104 (100-108) mmol/L Carbon Dioxide 30 (21-32) mmol/L Anion Gap 8.9 (5.0-14.0) mmol/L BUN 18 (7-18) mg/dL Creatinine 0.7 (0.6-1.0) mg/dL Est Cr Clr Drug Dosing 50.37 mL/min Estimated GFR (MDRD) > 60 (>60) Glucose 99 (74-106) mg/dL Calcium 8.4 L (8.5-10.1) mg/dL Total Bilirubin 0.4 (0.2-1.0) mg/dL AST 20 (15-37) U/L ALT 28 (12-78) U/L Alkaline Phosphatase 79 (46-116) U/L Total Protein 6.5 (6.4-8.2) g/dL Albumin 3.4 (3.4-5.0) g/dL Globulin 3.1 (2.3-3.5) g/dL Albumin/Globulin Ratio 1.1 L (1.2-2.2) Blood Type Gel Antibody Screen 09/22/20 09/23/20 09/23/20 Range/Units 21:07 06:12 06:12 WBC 8.2 (4.5-11.0) K/uL RBC 4.32 (3.30-5.50) M/uL Hgb 12.8 (12.0-15.0) g/dL Hct 39.4 (36.0-48.0) % MCV 91 (80-98) fL MCH 30 (27-31) pg MCHC 33 (32-36) % Plt Count 199 (150-400) K/uL Neut % (Auto) 50.7 (36-66) % Lymph % (Auto) 37.1 (24-44) % [place] % (Auto) 10.8 H (2-6) % Eos % (Auto) 0.7 L (2-4) % Baso % (Auto) 0.7 (0-1) % PT (9.5-12.0) sec INR (0.80-1.20) Sodium 146 (140-148) mmol/L Potassium 4.6 (3.6-5.2) mmol/L Chloride 109 H (100-108) mmol/L Carbon Dioxide 34 H (21-32) mmol/L Anion Gap 7.6 (5.0-14.0) mmol/L BUN 14 (7-18) mg/dL Creatinine 0.8 (0.6-1.0) mg/dL Est Cr Clr Drug Dosing 45.04 mL/min Estimated GFR (MDRD) > 60 (>60) Glucose 101 (74-106) mg/dL Calcium 8.0 L (8.5-10.1) mg/dL Total Bilirubin (0.2-1.0) mg/dL AST (15-37) U/L ALT (12-78) U/L Alkaline Phosphatase (46-116) U/L Total Protein (6.4-8.2) g/dL Albumin (3.4-5.0) g/dL Globulin (2.3-3.5) g/dL Albumin/Globulin Ratio (1.2-2.2) Blood Type O POSITIVE Gel Antibody Screen Negative Result Diagrams: 09/23/20 06:12 09/23/20 06:12 Sepsis Event Note - Evaluation Sepsis Screening Result: No Definite Risk - Focused Exam Vital Signs: Vital Signs Temp Pulse Resp BP Pulse Ox 09/23/20 10:36 36.5 C 58 L 16 151/53 H 98 09/23/20 07:00 36.2 C 58 L 16 152/43 H 96 09/23/20 05:59 73 24 H 145/53 H 93 L 09/23/20 05:58 35.2 C L 09/23/20 01:00 96 09/22/20 23:48 35.1 C L 69 20 112/62 97 09/22/20 23:46 97 - Problem List Review Problem List Initiated/Reviewed/Updated: Yes - My Orders Last 24 Hours: My Active Orders 09/23/20 11:01 Discontinue Telemetry Monitoring [Cardiac Monitoring Discontinue] [RC] Click to Edit 09/23/20 11:03 Notify Provider Consults [RC] ASDIRECTED Consult to Physician [CONS] Routine 09/23/20 Lunch Clear Liquid Diet [DIET] 09/23/20 13:00 bisacodyL [Dulcolax] 10 mg PO ONETIME ONE 09/23/20 14:00 polyethylene glycoL 3350 [MiraLAX] 238 gm PO ONETIME ONE 09/23/20 Dinner NPO After Midnight [Nothing per Oral After Midnight Diet] [DIET] 09/24/20 05:00 BASIC METABOLIC PANEL,BMP [CHEM] Timed CBC W/O DIFF,HEMOGRAM [HEME] Timed (1) - Plan Plan:: Assessment/Plan - Acute gastrointestinal hemorrhage-multiple bloody movements prior to present ation and some since admission. No significant pain. CT of the abdomen and pelvis was unremarkable for pathology other than diverticulosis. Hemoglobin fortunately has shown only a mild decline so far. She does have a history of bleeding ulcer but I suspect this is most likely a lower GI bleed. -Saline lock IV -Continue PPI -Clear liquids -Colon prep today -Surgical consultation for EGD and colonoscopy in the morning COPD-increased dyspnea for 6 weeks. She is oxygen dependent but does not use this consistently. Examination is benign and suspicion for acute infection is quite low. No active wheezing. -Continue nebulizers -Discontinue antibiotics -oxygen to keep sats greater than 90% -Scheduled and as needed nebulizers Maintenance issues -Nutrition: regular diet -Land[place] catheter -not indicated at this time -DVT - SCD -GI; IV Protonix 40mg daily Disposition: I would anticipate discharge home possibly with home care after the hospital stay Perez Duenas MD
[2020-09-23] MEDS ORDERED: Bisacodyl 5 MG Tab PO ONE (13:00)
[2020-09-23] MEDS ORDERED: Polyethylene Glycol 3350 Powder 238 GM Bot PO ONE (14:00)
[2020-09-23] MEDS ORDERED: cefTRIAXone 1 GM in Sodium Chloride 0.9% 50 ML IV SCH (21:00)
[2020-09-24] MEDS ORDERED: fentaNYL 100 MCG/2 ML SDV ONE (06:49)
[2020-09-24] MEDS ORDERED: Propofol 200 MG/20 ML SDV ONE ×4 (06:49→08:22)
[2020-09-24] MEDS: Pantoprazole 40 MG Vial IV SCH (08:30)
[2020-09-24] MEDS: Albuterol/Ipratropium 3.0-0.5 MG/3 ML Neb Soln NEB SCH ×4 (08:32→21:03)
--- NOTE | 2020-09-24 12:03 | PCM.PN ---
- General Info Date of Service: 09/24/20 Subjective Update: There were no acute events overnight. Patient tolerated the bowel prep fairly well. No evidence for active bleeding this morning. No abdominal pain. Hemoglobin essentially stable. Colonoscopy this morning showed diverticulosis but no active or recent bleeding. EGD showed some mild gastritis and duodenitis but no ulceration or bleeding. Tolerating lunch so far. Still feels short of breath but respiratory status has been stable on 2 L of oxygen. Functional Status: Reports: Pain Controlled, Tolerating Diet - Review of Systems General: Denies: Fever Pulmonary: Reports: Shortness of Breath - Patient Data Vitals - Most Recent: Last Vital Signs Temp 35.7 C L 09/24/20 10:49 Pulse 78 09/24/20 11:12 Resp 16 09/24/20 10:49 BP 143/54 H 09/24/20 10:49 Pulse Ox 100 09/24/20 10:49 Weight - Most Recent: 63.9 kg I&O - Last 24 Hours: Intake & Output 09/23/20 09/24/20 09/24/20 22:59 06:59 14:59 Intake Total 1534 500 360 Balance 1534 500 360 Lab Results Last 24 Hours: Laboratory Results - last 24 hr 09/24/20 09/24/20 Range/Units 04:10 04:10 WBC 6.6 (4.5-11.0) K/uL RBC 3.94 (3.30-5.50) M/uL Hgb 11.5 L (12.0-15.0) g/dL Hct 36.1 (36.0-48.0) % MCV 92 (80-98) fL MCH 29 (27-31) pg MCHC 32 (32-36) % Plt Count 172 (150-400) K/uL Sodium 147 (140-148) mmol/L Potassium 3.8 (3.6-5.2) mmol/L Chloride 111 H (100-108) mmol/L Carbon Dioxide 28 (21-32) mmol/L Anion Gap 11.8 (5.0-14.0) mmol/L BUN 10 (7-18) mg/dL Creatinine 0.6 (0.6-1.0) mg/dL Est Cr Clr Drug Dosing 59.76 mL/min Estimated GFR (MDRD) > 60 (>60) Glucose 90 (74-106) mg/dL Calcium 8.1 L (8.5-10.1) mg/dL Med Orders - Current: Current Medications Acetaminophen (Acetaminophen 325 Mg Tab) 650 mg PO Q4H PRN PRN Reason: Pain (Mild 1-3)/fever Albuterol (Albuterol 0.083% 2.5 Mg/3 Ml Neb Soln) 2.5 mg NEB Q4H PRN PRN Reason: Shortness Of Breath/wheezing Albuterol/Ipratropium (Albuterol/Ipratropium 3.0-0.5 Mg/3 Ml Neb Soln) 3 ml NEB QIDRT [facility]HAEL Last Admin: 09/24/20 11:12 Dose: 3 ml Documented by: Melatonin (Melatonin 3 Mg Tab) 6 mg PO BEDTIME PRN PRN Reason: Insomnia Last Admin: 09/23/20 22:23 Dose: 6 mg Documented by: Morphine Sulfate (Morphine 2 Mg/Ml Syringe) 2 mg IVPUSH Q2H PRN PRN Reason: Pain (severe 7-10) Ondansetron HCl (Ondansetron 4 Mg Tab.Dis) 4 mg PO Q6H PRN PRN Reason: Nausea able to take PO Oxycodone HCl (Oxycodone 5 Mg Tab) 5 mg PO Q4H PRN PRN Reason: Pain (moderate 4-6) Pantoprazole Sodium (Pantoprazole 40 Mg Vial) 40 mg IV DAILY [facility] Last Admin: 09/24/20 08:30 Dose: 40 mg Documented by: Sodium Chloride (Sodium Chloride 0.9% 10 Ml Syringe) 10 ml FLUSH ASDIRECTED PRN PRN Reason: Keep Vein Open Last Admin: 09/22/20 21:46 Dose: 10 ml Documented by: Discontinued Medications Albuterol (Albuterol 0.083% 2.5 Mg/3 Ml Neb Soln) 2.5 mg NEB ONETIME ONE Stop: 09/22/20 22:48 Last Admin: 09/22/20 23:06 Dose: 2.5 mg Documented by: Albuterol/Ipratropium (Albuterol/Ipratropium 3.0-0.5 Mg/3 Ml Neb Soln) 3 ml NEB QID MICHAEL Bisacodyl (Bisacodyl 5 Mg Tab) 10 mg PO ONETIME ONE Stop: 09/23/20 13:01 Last Admin: 09/23/20 13:16 Dose: 10 mg Documented by: Fentanyl (Fentanyl 100 Mcg/2 Ml Sdv) Confirm Administered Dose 100 mcg .ROUTE .STK-MED ONE Stop: 09/24/20 06:50 Lactated Ringer's (Ringers, Lactated) 1,000 mls @ 999 mls/hr IV BOLUS ONE Stop: 09/22/20 21:44 Last Infusion: 09/22/20 21:12 Dose: 600 mls/hr Documented by: Sodium Chloride (Normal Saline) 1,000 mls @ 100 mls/hr IV ASDIRECTED [facility] Last Admin: 09/23/20 10:12 Dose: 100 mls/hr Documented by: Ceftriaxone Sodium 1 gm/ (Sodium Chloride) 50 mls @ 200 mls/hr IV Q24H [facility] Stop: 09/29/20 23:47 Last Admin: 09/23/20 00:24 Dose: 200 mls/hr Documented by: Pantoprazole Sodium 80 mg/ (Sodium Chloride) 100 mls @ 200 mls/hr IV .BOLUS ONE Stop: 09/23/20 00:15 Last Admin: 09/23/20 00:24 Dose: 200 mls/hr Documented by: Ceftriaxone Sodium 1 gm/ (Sodium Chloride) 50 mls @ 100 mls/hr IV Q24H [facility] Pantoprazole Sodium (Pantoprazole 40 Mg Vial) Confirm Administered Dose 80 mg . ROUTE .STK-MED ONE Stop: 09/23/20 00:12 Last Admin: 09/23/20 00:25 Dose: Not Given Documented by: Pantoprazole Sodium (Pantoprazole 40 Mg Vial) Confirm Administered Dose 40 mg .ROUTE .STK-MED ONE Stop: 09/23/20 00:13 Last Admin: 09/23/20 00:25 Dose: Not Given Documented by: Polyethylene Glycol (Polyethylene Glycol 3350 Powder 238 Gm Bot) 238 gm PO ONETIME ONE Stop: 09/23/20 14:01 Last Admin: 09/23/20 13:16 Dose: 238 gm Documented by: Propofol (Propofol 200 Mg/20 Ml Sdv) Confirm Administered Dose 200 mg .ROUTE .STK-MED ONE Stop: 09/24/20 06:50 Propofol (Propofol 200 Mg/20 Ml Sdv) Confirm Administered Dose 200 mg .ROUTE .STK-MED ONE Stop: 09/24/20 07:35 Propofol (Propofol 200 Mg/20 Ml Sdv) Confirm Administered Dose 200 mg .ROUTE .STK-MED ONE Stop: 09/24/20 08:01 Propofol (Propofol 200 Mg/20 Ml Sdv) Confirm Administered Dose 200 mg .ROUTE .STK-MED ONE Stop: 09/24/20 08:23 - Exam Quality Assessment: Supplemental Oxygen General: Alert, Oriented, Cooperative, No Acute Distress Lungs: Clear to Auscultation, Normal Respiratory Effort. No: Wheezing Cardiovascular: Regular Rate, Regular Rhythm GI/Abdominal Exam: Soft, No Distention Extremities: No Pedal Edema. No: Increased Warmth Skin: Warm, Dry Psy/Mental Status: Alert, Normal Affect - Patient Data Lab Results Last 24 hrs: Laboratory Results - last 24 hr 09/24/20 09/24/20 Range/Units 04:10 04:10 WBC 6.6 (4.5-11.0) K/uL RBC 3.94 (3.30-5.50) M/uL Hgb 11.5 L (12.0-15.0) g/dL Hct 36.1 (36.0-48.0) % MCV 92 (80-98) fL MCH 29 (27-31) pg MCHC 32 (32-36) % Plt Count 172 (150-400) K/uL Sodium 147 (140-148) mmol/L Potassium 3.8 (3.6-5.2) mmol/L Chloride 111 H (100-108) mmol/L Carbon Dioxide 28 (21-32) mmol/L Anion Gap 11.8 (5.0-14.0) mmol/L BUN 10 (7-18) mg/dL Creatinine 0.6 (0.6-1.0) mg/dL Est Cr Clr Drug Dosing 59.76 mL/min Estimated GFR (MDRD) > 60 (>60) Glucose 90 (74-106) mg/dL Calcium 8.1 L (8.5-10.1) mg/dL Result Diagrams: 09/24/20 04:10 09/24/20 04:10 Sepsis Event Note - Evaluation Sepsis Screening Result: No Definite Risk - Focused Exam Vital Signs: Vital Signs Temp Temp Pulse Pulse Resp BP Pulse Ox 09/24/20 11:12 78 09/24/20 10:49 35.7 C L 75 16 143/54 H 100 06/30/21 09:00 66 16 139/48 L 92 L 09/24/20 08:45 68 134/49 L 09/24/20 08:32 82 09/24/20 08:30 69 148/52 H 09/24/20 08:20 35.1 C L 81 20 187/62 H 92 L 09/24/20 08:05 70 16 159/62 H 97 09/24/20 08:00 70 16 157/65 H 97 09/24/20 07:55 76 14 156/61 H 96 09/24/20 07:50 69 12 165/61 H 97 09/24/20 07:45 36.2 C 70 12 149/67 H 97 09/24/20 02:48 35.8 C L 65 16 156/33 H 97 Pulse Ox 09/24/20 11:12 09/24/20 10:49 09/24/20 09:00 09/24/20 08:45 09/24/20 08:32 96 09/24/20 08:30 09/24/20 08:20 09/24/20 08:05 09/24/20 08:00 09/24/20 07:55 09/24/20 07:50 09/24/20 07:45 09/24/20 02:48 - Problem List Review Problem List Initiated/Reviewed/Updated: Yes - My Orders Last 24 Hours: My Active Orders 09/25/20 05:00 HGB [HEMOGLOBIN] [HEME] Timed - Plan Plan:: Assessment/Plan - Acute gastrointestinal hemorrhage-bleeding seems to have resolved and was most likely from a diverticulum. Colonoscopy did not show old blood or active bleeding. Mild gastritis and duodenitis were not thought to be the cause for her bleeding. -Saline lock IV -Continue PPI (twice daily with meals) -Regular diet -Hemoglobin in the morning COPD-increased dyspnea for 6 weeks, does not consistently use oxygen but may need to. Still feels short of breath but exam is benign and vitals otherwise stable. -Continue nebulizers -Discontinue antibiotics -oxygen to keep sats greater than 90% -Scheduled and as needed nebulizers Maintenance issues -Nutrition: regular diet -DVT - SCD -GI; twice daily PPI Disposition: I would anticipate discharge home with home care after the hospital stay, likely tomorrow if stable overnight Perez Duenas MD
[2020-09-24] MEDS: Pantoprazole 40 MG Tab.CR PO SCH (16:46)
--- NOTE | 2020-09-24 18:21 | PCM.CONS ---
H&P History of Present Illness - General Date of Service: 09/24/20 Admit Problem/Dx: Admission Diagnosis/Problem GI Bleed Source of Information: Patient, EMS Notes Reviewed History Limitations: Reports: No Limitations - History of Present Illness Initial Comments - Free Text/Narative: Uyen presented to the ED with a history of 5 bloody stools on the day of admission Surgery was consulted to do an EGD and Colonoscopy. Onset of Symptoms: Reports: Sudden Duration of Symptoms: Reports: Day(s): (5) Improves with: Reports: None Worsens with: Reports: None Associated Symptoms: Reports: No Other Symptoms - Related Data Allergies/Adverse Reactions: Allergies Allergy/AdvReac Type Severity Reaction Status Date / Time adhesive tape Allergy Rash Verified 09/22/20 20:28 Iodinated Contrast Media Allergy Rash Verified 09/22/20 20:28 [Iodinated Contrast- Oral and IV Dye] loteprednol [From Lotemax] Allergy Rash Verified 09/22/20 20:28 prednisone Allergy Rash Verified 09/22/20 20:28 Sulfa (Sulfonamide Allergy Rash Verified 09/22/20 20:28 Antibiotics) Home Medications: Home Meds Multivitamin [Multi-Vitamin Daily] 1 tab PO DAILY 07/16/13 [History] [place]-3/DHA/Epa/Fish Oil [Fish Oil Dr 500 mg Softgel] 1,200 mg PO DAILY 07/16/13 [History] Aspirin [Children's Aspirin] 81 mg PO DAILY 05/16/17 [History] Fluticasone/Salmeterol [Advair 500-50] 1 puff INH DAILY 05/16/17 [History] atorvaSTATin [Lipitor] 10 mg PO BEDTIME 05/16/17 [History] Ipratropium/Albuterol Sulfate [Combivent Respimat Inhal [place]] 4 gm IH QID 12/26/17 [History] Fluticasone/Salmeterol [Advair 500-50] 1 puff INH DAILY 07/22/18 [History] Ascorbate Calcium [Vitamin C] 500 mg PO DAILY 09/22/20 [History] Past Medical History HEENT History: Reports: Cataract, Hard of Hearing, Impaired Vision Cardiovascular History: Reports: Heart Murmur, High Cholesterol Respiratory History: Reports: Asthma, Bronchitis, Recurrent, COPD, Other (See Below) Other Respiratory History: home O2 at night Gastrointestinal History: Reports: Colon Polyp, Hemorrhoids, Other (See Below) Other Gastrointestinal History: hx of colon cancer ACUTE CARE PHYSICIAN History: Reports: Musculoskeletal History: Reports: Back Pain, Chronic, Osteoarthritis Neurological History: Reports: Cerebral Aneurysms, Headaches, Chronic Psychiatric History: Reports: Depression, Panic Attack Oncologic (Cancer) History: Reports: Colon - Infectious Disease History Infectious Disease History: Reports: Chicken Pox, Measles, Mumps, Shingles - Past Surgical History Head Surgeries/Procedures: Reports: None HEENT Surgical History: Reports: Adenoidectomy, Cataract Surgery, Tonsillectomy Cardiovascular Surgical History: Reports: None Respiratory Surgical History: Reports: None GI Surgical History: Reports: Colon, Colonoscopy, EGD, Hernia, Inguinal, Other (See Below) Other GI Surgeries/Procedures: hemorrhoidectomy, colon resection Female Surgical History: Reports: None Neurological Surgical History: Reports: None Musculoskeletal Surgical History: Reports: Other (See Below) Other Musculoskeletal Surgeries/Procedures:: left foot surgery Oncologic Surgical History: Reports: None Dermatological Surgical History: Reports: None Social & Family History - Family History Family Medical History: No Pertinent Family History - Tobacco Use Tobacco Use Status *Q: Former Tobacco User Used Tobacco, but Quit: Yes Month/Year Tobacco Last Used: Mar 2020 Second Hand Smoke Exposure: No - Caffeine Use Caffeine Use: Reports: Coffee Other Caffeine Use: 4 cups of coffee per day - Recreational Drug Use Recreational Drug Use: No - Living Situation & Occupation Living situation: Reports: Alone (lives alone between [facility] by [place]. Has 5 children who check on her and assist her as needed.) H&P Review of Systems - Review of Systems: Review Of Systems: See Below General: Reports: Weakness, Fatigue, Decreased Appetite HEENT: Reports: No Symptoms Pulmonary: Reports: Shortness of Breath, Cough, Sputum Cardiovascular: Reports: No Symptoms Gastrointestinal: Reports: Bloody Stool Genitourinary: Reports: No Symptoms Musculoskeletal: Reports: No Symptoms Skin: Reports: No Symptoms Psychiatric: Reports: No Symptoms Neurological: Reports: No Symptoms Hematologic/Lymphatic: Reports: No Symptoms Immunologic: Reports: No Symptoms Exam - Exam Exam: See Below - Vital Signs Vital Signs: Last Vital Signs Temp 96 F L 09/24/20 14:31 Pulse 80 09/24/20 15:09 Resp 16 09/24/20 14:31 BP 117/42 L 09/24/20 14:31 Pulse Ox 98 09/24/20 14:31 Weight: 140 lb 14.006 oz - Exam Quality Assessment: Supplemental Oxygen, DVT Prophylaxis General: Alert, Oriented, Mild Distress HEENT: PERRLA, Conjunctiva Clear Neck: Supple, Trachea Midline Lungs: Decreased Breath Sounds, Rhonchi Cardiovascular: Regular Rate, Regular Rhythm GI/Abdominal Exam: Normal Bowel Sounds, Non-Tender (Female) Exam: Deferred Rectal (Female) Exam: Deferred Back Exam: Normal Inspection, Full Range of Motion Extremities: Normal Inspection, Normal Range of Motion, Non-Tender Skin: Warm, Dry, Intact Neuro Extensive - Mental Status: Alert, Oriented x3, Normal Mood/Affect Psychiatric: Other (appears weak) - Patient Data Lab Results Last 24 hrs: Laboratory Results - last 24 hr 09/24/20 09/24/20 Range/Units 04:10 04:10 WBC 6.6 (4.5-11.0) K/uL RBC 3.94 (3.30-5.50) M/uL Hgb 11.5 L (12.0-15.0) g/dL Hct 36.1 (36.0-48.0) % MCV 92 (80-98) fL MCH 29 (27-31) pg MCHC 32 (32-36) % Plt Count 172 (150-400) K/uL Sodium 147 (140-148) mmol/L Potassium 3.8 (3.6-5.2) mmol/L Chloride 111 H (100-108) mmol/L Carbon Dioxide 28 (21-32) mmol/L Anion Gap 11.8 (5.0-14.0) mmol/L BUN 10 (7-18) mg/dL Creatinine 0.6 (0.6-1.0) mg/dL Est Cr Clr Drug Dosing 59.76 mL/min Estimated GFR (MDRD) > 60 (>60) Glucose 90 (74-106) mg/dL Calcium 8.1 L (8.5-10.1) mg/dL Result Diagrams: 09/24/20 04:10 09/24/20 04:10 Sepsis Event Note - Evaluation Sepsis Screening Result: No Definite Risk - Focused Exam Vital Signs: Vital Signs Temp Pulse Resp BP Pulse Ox Pulse Ox 09/24/20 15:09 80 09/24/20 14:31 96 F L 79 16 117/42 L 98 09/24/20 11:12 78 09/24/20 10:49 96.3 F L 75 16 143/54 H 100 09/24/20 09:00 66 16 139/48 L 92 L 09/24/20 08:45 68 134/49 L 09/24/20 08:32 82 96 09/24/20 08:30 69 148/52 H 09/24/20 08:20 95.1 F L 81 20 187/62 H 92 L 09/24/20 08:05 70 16 159/62 H 97 09/24/20 08:00 70 16 157/65 H 97 09/24/20 07:55 76 14 156/61 H 96 09/24/20 07:50 69 12 165/61 H 97 09/24/20 07:45 97.2 F 70 12 149/67 H 97 Consult PN Assessment/Plan Procedures: Procedures AIRWAY INHALATION TREATMENT (07/22/18) ASSAY OF CK (CPK) (07/29/13) ASSAY OF MAGNESIUM (07/29/13) ASSAY OF TROPONIN QUANT (07/22/18) BLOOD TYPING SEROLOGIC ABO (03/14/18) BLOOD TYPING SEROLOGIC RH(D) (03/14/18) CARDIOVASCULAR STRESS TEST (08/01/13) CARDIOVASCULAR STRESS TEST (08/01/13) CHEST X-RAY 1 VIEW FRONTAL (07/29/13) COMP SCREEN MAMMOGRAM ADD-ON (03/19/13) COMPLETE CBC AUTOMATED (03/14/18) COMPLETE CBC W/AUTO DIFF WBC (07/22/18) COMPREHEN METABOLIC PANEL (07/22/18) CREATINE MB FRACTION (07/29/13) CT ABD & PELVIS W/O CONTRAST (08/28/18) CT THORAX DX C- (10/28/15) CULTURE SCREEN ONLY (03/14/18) ELECTROCARDIOGRAM TRACING (07/29/13) EMERGENCY DEPT VISIT (07/22/18) EMERGENCY DEPT VISIT (07/29/13) EMERGENCY DEPT VISIT (07/16/13) EVALUATE PT USE OF INHALER (07/29/13) EXTRACRANIAL BILAT STUDY (08/03/13) HEMOGLOBIN (03/14/18) HT MUSCLE IMAGE SPECT MULT (08/01/13) METABOLIC PANEL TOTAL CA (03/14/18) PROTHROMBIN TIME (07/29/13) RBC ANTIBODY SCREEN (03/14/18) ROUTINE VENIPUNCTURE (07/22/18) THER/PROPH/DIAG INJ IV PUSH (07/22/18) THROMBOPLASTIN TIME PARTIAL (07/29/13) TTE W/DOPPLER COMPLETE (07/29/13) TX/PRO/DX INJ NEW DRUG ADDON (07/22/18) URINALYSIS AUTO W/SCOPE (03/14/18) X-RAY EXAM CHEST 2 VIEWS (07/22/18) XCAPSL CTRC RMVL W/O ECP (06/02/17) (1) COPD exacerbation SNOMED Code(s): 344865595 Code(s): J44.1 - CHRONIC OBSTRUCTIVE PULMONARY DISEASE W (ACUTE) EXACERBATION Priority: High Current Visit: Yes (2) GI bleed SNOMED Code(s): 09757548 Code(s): K92.2 - GASTROINTESTINAL HEMORRHAGE, UNSPECIFIED Priority: High Current Visit: Yes Qualifiers: GI bleed type/associated pathology: unspecified gastrointestinal hemorrhage type Qualified Code(s): K92.2 - Gastrointestinal hemorrhage, unspecified Problem List Initiated/Reviewed/Updated: Yes My Orders Last 24 Hours: EGD and Colonoscopy today - Surgeon Yoel Islas MD. Orders to be written after procedures. Thank you for this consultation. Beth LERNER CP 09/24/2020
[2020-09-25] MEDS: Pantoprazole 40 MG Tab.CR PO SCH (07:14)
[2020-09-25] MEDS: Albuterol/Ipratropium 3.0-0.5 MG/3 ML Neb Soln NEB SCH ×2 (07:30→10:59)
--- NOTE | 2020-09-25 09:27 | PN ---
DATE OF SERVICE: 09/25/2020 SUBJECTIVE: Uyen had an upper endoscopy and colonoscopy. She was found to have no active bleeding. Some mild antral gastritis and diverticula. In the past 24 hours, no BMs. She does report difficulty breathing. OBJECTIVE: GENERAL: Uyen Dutta is an 85-year-old female. She is alert and orientated, sitting up in bed, leaning forward. VITAL SIGNS: TPR 97, 74, 18, blood pressure 138/50. HEENT: Negative. NECK: Supple. HEART: Regular rate and rhythm. LUNGS: Decreased breath sounds, wheezing, shallow respirations. ABDOMEN: Soft, nontender. EXTREMITIES: Negative. ASSESSMENT: 1. Gastrointestinal bleeding, undetermined source. 2. Status post upper endoscopy and colonoscopy. Date: 09/24/2020. Surgeon: Yoel Islas MD. 3. Chronic obstructive pulmonary disease exacerbation. PLAN: 1. Give neb now. 2. Surgery will sign off the patient's care to hospitalist. 3. Follow up if needed to Surgery Department. Beth Costello PA-C /[id number]
--- NOTE | 2020-09-25 10:53 | PCM.DCSUM1 ---
Discharge Summary - Hospital Course Brief History: 85-year-old female with history of oxygen dependent COPD and previous bleeding gastric ulcer who presented with multiple episodes of rectal bleeding. She was admitted for management of a presumed lower gastrointestinal hemorrhage. 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 Primary Care Physician: Ivone Bailey PA-C Skilled Need: Nursing, physical therapy and a home health aide - Discharge Diagnosis/Problem(s) (1) Acute gastrointestinal hemorrhage SNOMED Code(s): 62972212 ICD Code: K92.2 - GASTROINTESTINAL HEMORRHAGE, UNSPECIFIED Status: Acute (2) Anemia due to blood loss, acute SNOMED Code(s): 663831460 ICD Code: D62 - ACUTE POSTHEMORRHAGIC ANEMIA Status: Acute (3) COPD (chronic obstructive pulmonary disease) with emphysema SNOMED Code(s): 65756951 ICD Code: J43.9 - EMPHYSEMA, UNSPECIFIED Status: Chronic Qualifiers: Emphysema type: unspecified Qualified Code(s): J43.9 - Emphysema, unspecified - Patient Summary/Data Consults: Consultations 09/23/20 11:03 Consult to Physician [CONS] Routine Consulting Provider: Yoel Islas Call Completed to Consulting Physician: Yes Reason for Consult: GI bleeding Person Notified: PAINTING Date Notified: 09/23/20 Special Instructions: EGD and colon in am Hospital Course: Uyen presented to the emergency room with multiple episodes of bright red blood per rectum. Work-up in the emergency room revealed a hemoglobin that was initially in the normal range. There was concern for a lower gastrointestinal hemorrhage. Surgical services did consult in the emergency room and recommended admission with initially medical management and a CT scan of the abdomen pelvis in the morning and at some point probably a colonoscopy. Patient did receive a type and crossmatch as well as 2 large-bore IVs and was admitted to the hospital. Overnight she had several more episodes of bright red blood per rectum. The morning after admission her hemoglobin had dropped some but did not require a blood transfusion. A CT scan revealed significant diverticulosis but no obvious cause for her bleeding. The case was discussed with surgical services again and they agreed to consider colonoscopy and EGD the next day. Patient underwent a bowel prep the day after admission. She tolerated this fairly well. This seemed to resolve her gastrointestinal bleeding. Serial hemoglobin levels showed a slow decline but not low enough to require blood transfusion. On the second day of the hospital stay the patient had an EGD which showed mild gastritis and duodenitis but this was not thought to be the source of bleeding. Colonoscopy showed significant diverticulosis but no active bleeding or old blood. Diverticular bleed is suspected. The bleeding seems to have resolved at this point. No specific treatment is needed since the bleeding has resolved. Her hemoglobin never dropped below transfusion threshold. She has tolerated a regular diet and is stable and safe for discharge home. Patient did mention that she has been more short of breath for the past couple of months. Chest x-ray was clear other than some hyperinflation consistent with emphysema and her known COPD. Examination was benign with no active wheezing. I suspect this may be her new normal with her COPD. We did not change any of her medications. She does have home oxygen available. She did have some mild thrush which is probably related to her Advair so we reviewed the importance of cleaning out her mouth after using the Advair and did send home a prescription for nystatin swish and swallow. - Patient Instructions Diet: Regular Diet as Tolerated Activity: As Tolerated Showering/Bathing: May Shower Other/Special Instructions: 1. You were in the hospital for evaluation and management of a lower gastrointestinal hemorrhage. I suspect the bleeding came from a diverticulum in your colon. The bleeding has stopped. No specific intervention is necessary at this time. I do recommend that you avoid constipation as this can increase the risk for recurrent bleeding. 2. Continue your usual home medications as previously prescribed. 3. You have thrush on your tongue and in your mouth. I suspect this was caused by your Advair. It is important to rinse your mouth out thoroughly after you use this inhaler. I have sent a prescription for nystatin to help clear up the thrush. Please take 5 mL 4 times daily for 5 days. 4. Follow up with Dr. Maddy Comer as scheduled in 2 weeks or sooner if your symptoms do not continue to get better or if they get worse. Please seek medical attention if you have recurrence of your gastrointestinal bleeding. - Discharge Plan *PRESCRIPTION DRUG MONITORING PROGRAM REVIEWED*: Not Applicable *COPY OF PRESCRIPTION DRUG MONITORING REPORT IN PATIENT AYSE: Not Applicable Prescriptions/Med Rec: Nystatin 500,000 unit PO QID #120 ml Home Medications: Home Meds Multivitamin [Multi-Vitamin Daily] 1 tab PO DAILY 07/16/13 [History] [place]-3/DHA/Epa/Fish Oil [Fish Oil Dr 500 mg Softgel] 1,200 mg PO DAILY 07/16/13 [History] Aspirin [Children's Aspirin] 81 mg PO DAILY 05/16/17 [History] Fluticasone/Salmeterol [Advair 500-50] 1 puff INH DAILY 05/16/17 [History] atorvaSTATin [Lipitor] 10 mg PO BEDTIME 05/16/17 [History] Ipratropium/Albuterol Sulfate [Combivent Respimat 20-100 Mcg] 4 gm IH QID 12/26/17 [History] Fluticasone/Salmeterol [Advair 500-50] 1 puff INH DAILY 07/22/18 [History] Ascorbate Calcium [Vitamin C] 500 mg PO DAILY 09/22/20 [History] Nystatin 500,000 unit PO QID #120 ml 09/25/20 [Rx] Patient Handouts: Oral Thrush, Adult, [id number], Lower Gastrointestinal Bleeding Referrals: Maddy Comer DO [Physician] - 10/09/20 1:40 pm (Please arrive 15 minutes early to register for your appointment.) - Discharge Summary/Plan Comment DC Time >30 min.: No - Patient Data Vitals - Most Recent: Last Vital Signs Temp 35 C L 09/25/20 07:00 Pulse 78 09/25/20 07:00 Resp 18 09/25/20 07:00 BP 183/44 H 09/25/20 07:00 Pulse Ox 92 L 09/25/20 07:00 Weight - Most Recent: 63.9 kg I&O - Last 24 hours: Intake & Output 09/24/20 09/25/20 09/25/20 22:59 06:59 14:59 Intake Total 1000 200 240 Balance 1000 200 240 Lab Results - Last 24 hrs: Laboratory Results - last 24 hr 09/25/20 Range/Units 05:25 Hgb 10.9 L (12.0-15.0) g/dL PER Results - Last 24 hrs: Microbiology 09/24/20 07:26 CLOtest - Final Stomach NEGATIVE CLOTEST REFERENCE RANGE: NEGATIVE Med Orders - Current: Current Medications Acetaminophen (Acetaminophen 325 Mg Tab) 650 mg PO Q4H PRN PRN Reason: Pain (Mild 1-3)/fever Albuterol (Albuterol 0.083% 2.5 Mg/3 Ml Neb Soln) 2.5 mg NEB Q4H PRN PRN Reason: Shortness Of Breath/wheezing Last Admin: 09/25/20 06:44 Dose: 2.5 mg Documented by: Albuterol/Ipratropium (Albuterol/Ipratropium 3.0-0.5 Mg/3 Ml Neb Soln) 3 ml NEB QIDRT [facility] Last Admin: 09/25/20 07:30 Dose: Not Given Documented by: Melatonin (Melatonin 3 Mg Tab) 6 mg PO BEDTIME PRN PRN Reason: Insomnia Last Admin: 09/23/20 22:23 Dose: 6 mg Documented by: Morphine Sulfate (Morphine 2 Mg/Ml Syringe) 2 mg IVPUSH Q2H PRN PRN Reason: Pain (severe 7-10) Ondansetron HCl (Ondansetron 4 Mg Tab.Dis) 4 mg PO Q6H PRN PRN Reason: Nausea able to take PO Oxycodone HCl (Oxycodone 5 Mg Tab) 5 mg PO Q4H PRN PRN Reason: Pain (moderate 4-6) Pantoprazole Sodium (Pantoprazole 40 Mg Tab.Cr) 40 mg PO BIDAC [facility] Last Admin: 09/25/20 07:14 Dose: 40 mg Documented by: Sodium Chloride (Sodium Chloride 0.9% 10 Ml Syringe) 10 ml FLUSH ASDIRECTED PRN PRN Reason: Keep Vein Open Last Admin: 09/22/20 21:46 Dose: 10 ml Documented by: Discontinued Medications Albuterol (Albuterol 0.083% 2.5 Mg/3 Ml Neb Soln) 2.5 mg NEB ONETIME ONE Stop: 09/22/20 22:48 Last Admin: 09/22/20 23:06 Dose: 2.5 mg Documented by: Albuterol/Ipratropium (Albuterol/Ipratropium 3.0-0.5 Mg/3 Ml Neb Soln) 3 ml NEB QID MICHAEL Bisacodyl (Bisacodyl 5 Mg Tab) 10 mg PO ONETIME ONE Stop: 09/23/20 13:01 Last Admin: 09/23/20 13:16 Dose: 10 mg Documented by: Fentanyl (Fentanyl 100 Mcg/2 Ml Sdv) Confirm Administered Dose 100 mcg .ROUTE .STK-MED ONE Stop: 09/24/20 06:50 Lactated Ringer's (Ringers, Lactated) 1,000 mls @ 999 mls/hr IV BOLUS ONE Stop: 09/22/20 21:44 Last Infusion: 09/22/20 21:12 Dose: 600 mls/hr Documented by: Sodium Chloride (Normal Saline) 1,000 mls @ 100 mls/hr IV ASDIRECTED [facility] Last Admin: 09/23/20 10:12 Dose: 100 mls/hr Documented by: Ceftriaxone Sodium 1 gm/ (Sodium Chloride) 50 mls @ 200 mls/hr IV Q24H [facility] Stop: 09/29/20 23:47 Last Admin: 09/23/20 00:24 Dose: 200 mls/hr Documented by: Pantoprazole Sodium 80 mg/ (Sodium Chloride) 100 mls @ 200 mls/hr IV .BOLUS ONE Stop: 09/23/20 00:15 Last Admin: 09/23/20 00:24 Dose: 200 mls/hr Documented by: Ceftriaxone Sodium 1 gm/ (Sodium Chloride) 50 mls @ 100 mls/hr IV Q24H [facility] Pantoprazole Sodium (Pantoprazole 40 Mg Vial) 40 mg IV DAILY [facility] Last Admin: 09/24/20 08:30 Dose: 40 mg Documented by: Pantoprazole Sodium (Pantoprazole 40 Mg Vial) Confirm Administered Dose 80 mg .ROUTE .STK-MED ONE Stop: 09/23/20 00:12 Last Admin: 09/23/20 00:25 Dose: Not Given Documented by: Pantoprazole Sodium (Pantoprazole 40 Mg Vial) Confirm Administered Dose 40 mg .ROUTE .STK-MED ONE Stop: 09/23/20 00:13 Last Admin: 09/23/20 00:25 Dose: Not Given Documented by: Polyethylene Glycol (Polyethylene Glycol 3350 Powder 238 Gm Bot) 238 gm PO ONETIME ONE Stop: 09/23/20 14:01 Last Admin: 09/23/20 13:16 Dose: 238 gm Documented by: Propofol (Propofol 200 Mg/20 Ml Sdv) Confirm Administered Dose 200 mg .ROUTE .STK-MED ONE Stop: 09/24/20 06:50 Propofol (Propofol 200 Mg/20 Ml Sdv) Confirm Administered Dose 200 mg .ROUTE .STK-MED ONE Stop: 09/24/20 07:35 Propofol (Propofol 200 Mg/20 Ml Sdv) Confirm Administered Dose 200 mg .ROUTE .STK-MED ONE Stop: 09/24/20 08:01 Propofol (Propofol 200 Mg/20 Ml Sdv) Confirm Administered Dose 200 mg .ROUTE .STK-MED ONE Stop: 09/24/20 08:23
--- NOTE | 2020-10-05 05:23 | OR ---
DATE OF PROCEDURE: 09/24/2020 SURGEON: Yoel Islas MD PREOPERATIVE DIAGNOSIS: Recent gastrointestinal bleeding. POSTOPERATIVE DIAGNOSES: Recent gastrointestinal bleeding associated with: 1. Minimal antral gastritis, proximal duodenitis (unlikely source of bleeding). 2. Extensive pandiverticulosis otherwise without additional colonic pathology (diverticular disease likely source of bleeding, but no blood or bleeding seen on present exam). OPERATIVE PROCEDURES: 1. Esophagogastric biopsy with antral biopsies for the CLOtest. 2. Flexible colonoscopy. ANESTHESIA: IV sedation. INDICATION FOR PROCEDURE: An 85-year-old female presenting with some significant rectal bleeding enough to require transfusions. The bleeding was fairly red and occurred with relatively large amounts any given session. The plan is to proceed with an upper and lower endoscopy for diagnostic purposes. Potential risks of the procedure including bleeding and perforation were discussed, and the patient wishes to proceed. DETAILS OF PROCEDURE: The patient was taken to the operating room and placed in a left lateral decubitus position. IV sedation was administered, after which the upper GI endoscope was passed orally through the length of the esophagus and stomach with retroflexion view of the fundus, and thereafter through the pyloric channel and into the proximal duodenum. Findings included some minimal antral gastritis and proximal duodenitis, otherwise examination is unremarkable. None of these locations would likely be accounting for a large amount of bleeding that the patient has recently experienced. Biopsies were obtained from the antrum and sent for CLOtest for H pylori and all bleeding from the biopsy site was controlled with cautery. Attention was then taken to the colonoscopy. Initial digital rectal exam was performed and was unremarkable colonoscope was then passed into the rectum with retroflexion revealing uncomplicated hemorrhoidal columns. Scope was eventually passed to the cecum. The prep was quite good with only small liquid stool and some scattered solid stool coming out of the diverticula were noted. No blood or bleeding at any point was seen. Otherwise there were no areas of colitis and no signs of neoplasia or polyps. Scope was then withdrawn. The above findings were reconfirmed, and the procedure was then concluded. Based on the patient's clinical presentation and the lack of any other specific pathology, it is highly likely that the patient had been suffering bleeding from diverticulosis, which now has stopped. Yoel Islas MD /[id number]
== END 2020-09-25 12:21 | disposition home health service (06) | DRG 378 ==
LOC: JP.ED 20:05 → JP.MS 22:55
PROVIDERS: ADMIT Internal Medicine; ATTEND Internal Medicine
PROC: 0DB68ZX Excision of Stomach, Via Natural or Artificial Opening Endoscopic, Diagnostic (ICD-10-PCS; principal; 2020-09-24)
PROC: 0DJD8ZZ Inspection of Lower Intestinal Tract, Via Natural or Artificial Opening Endoscopic (ICD-10-PCS; 2020-09-24)
DX: K92.2 Gastrointestinal hemorrhage, unspecified (principal); J44.1 Chronic obstructive pulmonary disease with (acute) exacerbation; K57.31 Diverticulosis of large intestine without perforation or abscess with bleeding; Z79.82 Long term (current) use of aspirin; D62 Acute posthemorrhagic anemia; J43.9 Emphysema, unspecified; H91.90 Unspecified hearing loss, unspecified ear; H54.7 Unspecified visual loss; M54.9 Dorsalgia, unspecified; G89.29 Other chronic pain; F41.0 Panic disorder [episodic paroxysmal anxiety]; F32.9 Major depressive disorder, single episode, unspecified; Z66 Do not resuscitate; E78.00 Pure hypercholesterolemia, unspecified; K29.70 Gastritis, unspecified, without bleeding; K29.80 Duodenitis without bleeding; Z91.041 Radiographic dye allergy status; Z88.2 Allergy status to sulfonamides; Z88.8 Allergy status to other drugs, medicaments and biological substances; Z79.899 Other long term (current) drug therapy; Z91.048 Other nonmedicinal substance allergy status; Z85.038 Personal history of other malignant neoplasm of large intestine; Z87.891 Personal history of nicotine dependence; Z98.49 Cataract extraction status, unspecified eye
CPT/HCPCS: 36415; 71045 ×2; 80053; 85025; 85610; 86850; 86900; 86901; 99285 ×2; J7120; 74176; 74176-26; 80048; 85018; 85027; 87081; 94640; A9270-GY; C9113; J0696; J2704; J3010; J7030; J7620-GY

== ENCOUNTER 2021-03-30 15:42 | Emergency (ER) | payer MEDICARE, BC ==
--- NOTE | 2021-03-30 18:20 | EDM.PDOC ---
ED HPI GENERAL MEDICAL PROBLEM - General Chief Complaint: Wound Recheck Stated Complaint: LEFT SIDE LUMP Time Seen by Provider: 03/30/21 18:00 Source of Information: Reports: Patient, Family History Limitations: Reports: No Limitations - History of Present Illness INITIAL COMMENTS - FREE TEXT/NARRATIVE: 85-year-old female with persistent inflamed sebaceous cyst on the left lateral chest wall that she has scheduled surgery for on 06 April. It is very inflamed, irritated, and she doesn't think she can wait without further treatment. No fevers or chills. Onset: Gradual Duration: Chronic (Lesion has been present for couple months, it has been biopsied by dermatology) Associated Symptoms: Reports: No Other Symptoms, Chest Pain (Some discomfort is radiating into the lateral left breast), Malaise. Denies: Fever/Chills Left Chest Pain Score (Numeric/FACES): 4 - Related Data Allergies Allergy/AdvReac Type Severity Reaction Status Date / Time adhesive tape Allergy Rash Verified 03/30/21 17:52 Iodinated Contrast Media Allergy Rash Verified 03/30/21 17:52 [Iodinated Contrast- Oral and IV Dye] loteprednol [From Lotemax] Allergy Rash Verified 03/30/21 17:52 prednisone Allergy Rash Verified 03/30/21 17:52 Sulfa (Sulfonamide Allergy Rash Verified 03/30/21 17:52 Antibiotics) Home Meds: Home Meds Multivitamin [Multi-Vitamin Daily] 1 tab PO DAILY 07/16/13 [History] [place]-3/DHA/Epa/Fish Oil [Fish Oil Dr 500 mg Softgel] 1,200 mg PO DAILY 07/16/13 [History] Aspirin [Children's Aspirin] 81 mg PO DAILY 05/16/17 [History] atorvaSTATin [Lipitor] 10 mg PO BEDTIME 05/16/17 [History] Ipratropium/Albuterol Sulfate [Combivent Respimat 20-100 Mcg] 4 gm IH QID 12/26/17 [History] Fluticasone/Salmeterol [Advair 500-50] 1 puff INH DAILY 07/22/18 [History] Ascorbate Calcium [Vitamin C] 500 mg PO DAILY 09/22/20 [History] Clindamycin HCl 300 mg PO BID #10 capsule 03/30/21 [Rx] dexAMETHasone [Dexamethasone] 2 mg PO Q8H 3 Days #6 tab 01/03/22 [Rx] Past Medical History HEENT History: Reports: Cataract, Hard of Hearing, Impaired Vision Cardiovascular History: Reports: Heart Murmur, High Cholesterol Respiratory History: Reports: Asthma, Bronchitis, Recurrent, COPD, Other (See Below) Other Respiratory History: home O2 at night Gastrointestinal History: Reports: Colon Polyp, Hemorrhoids, Other (See Below) Other Gastrointestinal History: hx of colon cancer PAINTER HAND History: Reports: Musculoskeletal History: Reports: Back Pain, Chronic, Osteoarthritis Neurological History: Reports: Cerebral Aneurysms, Headaches, Chronic Psychiatric History: Reports: Depression, Panic Attack Oncologic (Cancer) History: Reports: Colon - Infectious Disease History Infectious Disease History: Reports: Chicken Pox, Measles, Mumps, Shingles - Past Surgical History Head Surgeries/Procedures: Reports: None HEENT Surgical History: Reports: Adenoidectomy, Cataract Surgery, Tonsillectomy GI Surgical History: Reports: Colon, Colonoscopy, EGD, Hernia, Inguinal, Other (See Below) Other GI Surgeries/Procedures: hemorrhoidectomy, colon resection Musculoskeletal Surgical History: Reports: Other (See Below) Other Musculoskeletal Surgeries/Procedures:: left foot surgery Social & Family History - Family History Family Medical History: No Pertinent Family History - Tobacco Use Tobacco Use Status *Q: Never Tobacco User - Caffeine Use Caffeine Use: Reports: Coffee Other Caffeine Use: 4 cups of coffee per day - Recreational Drug Use Recreational Drug Use: No - Living Situation & Occupation Living situation: Reports: Alone (lives alone between [facility] by [place]. Has 5 children who check on her and assist her as needed.) ED ROS GENERAL - Review of Systems Review Of Systems: See Below Constitutional: Reports: Malaise. Denies: Fever, Chills HEENT: Reports: No Symptoms Respiratory: Denies: Shortness of Breath, Pleuritic Chest Pain Cardiovascular: Reports: Chest Pain (Discomfort and pain around the inflamed area on the left lateral chest) GI/Abdominal: Reports: Decreased Appetite. Denies: Abdominal Pain, Nausea, Vomiting Skin: Reports: Erythema, Wound Neurological: Reports: No Symptoms ED EXAM, SKIN/RASH Exam: See Below Exam Limited By: No Limitations General Appearance: Alert, No Apparent Distress (Looks uncomfortable but not distressed) Respiratory/Chest: No Respiratory Distress, Lungs Clear Cardiovascular: Regular Rate, Rhythm GI/Abdominal: Soft, Non-Tender Skin: Other (On the left lateral chest wall the patient has a large area marked superficial inflammation, nonblanching erythema and small clear blister formation under the area of adhesive tape. A central cyst is present which is tender) Course - Vital Signs Last Recorded V/S: Last Vital Signs Temp 97.6 F 03/30/21 16:50 Pulse 80 03/30/21 16:50 Resp 17 03/30/21 16:50 BP 179/53 H 03/30/21 16:50 Pulse Ox 95 03/30/21 16:50 - Orders/Labs/Meds Orders: Active Orders 24 hr Category Date Time Status CULTURE WOUND + SMEAR [RM] Stat Lab 03/30/21 18:17 Results - Re-Assessments/Exams Free Text/Narrative Re-Assessment/Exam: 03/30/21 21:01 After cleaning the area with alcohol gentle pressure was applied to the central cyst and a small amount of thick white secretion was expelled and cultured. This looks like it is mostly topical contact dermatitis that is bothering her rather than the cyst itself. She was started on clindamycin 300 mg twice daily, but also 4 mg of dexamethasone every 6 hours for the next 3 days and encouraged to use topical hydrocortisone. We will call her with culture results if it dictates any change in treatment. Otherwise continue with current medications prescribed and recheck for surgery on the as planned. Departure - Departure Time of Disposition: 18:32 Disposition: Home, Self-Care 01 Clinical Impression: Infected sebaceous cyst of skin Contact dermatitis Qualifiers: Contact dermatitis type: allergic Contact dermatitis trigger: adhesive Qualified Code(s): L23.1 - Allergic contact dermatitis due to adhesives - Discharge Information Prescriptions: Clindamycin HCl 300 mg PO BID #10 capsule dexAMETHasone [Dexamethasone] 2 mg PO Q8H 3 Days #6 tab Instructions: Epidermoid Cyst Drainage Referrals: Ivone Bailey PA-C [Primary Care Provider] - Forms: ED Department Discharge Care Plan Goals: Take dexamethasone and antibiotic over the next several days as directed, consider some topical hydrocortisone and keep wound covered loosely until surgery. Return anytime if worsening despite treatment. Sepsis Event Note (ED) - Focused Exam Vital Signs: Vital Signs Temp Pulse Resp BP Pulse Ox 03/30/21 16:50 97.6 F 80 17 179/53 H 95 03/30/21 16:48 97.6 F 80 17 179/53 H 95 - My Orders Last 24 Hours: My Active Orders 03/30/21 18:17 CULTURE WOUND + SMEAR [RM] Stat - Assessment/Plan Last 24 Hours: My Active Orders 03/30/21 18:17 CULTURE WOUND + SMEAR [RM] Stat
== END 2021-03-30 18:32 | disposition home or self-care (01) ==
LOC: JP.ED 15:42
DX: L72.3 Sebaceous cyst (principal); L23.1 Allergic contact dermatitis due to adhesives; J44.9 Chronic obstructive pulmonary disease, unspecified; E78.00 Pure hypercholesterolemia, unspecified; M19.90 Unspecified osteoarthritis, unspecified site; Z91.041 Radiographic dye allergy status; Z91.048 Other nonmedicinal substance allergy status; Z88.8 Allergy status to other drugs, medicaments and biological substances; Z88.2 Allergy status to sulfonamides; Z79.82 Long term (current) use of aspirin; Z79.899 Other long term (current) drug therapy
CPT/HCPCS: 87070; 87205; 99283

== ENCOUNTER 2021-11-05 20:39 | Emergency (ER) | payer MEDICARE, BC ==
[2021-11-06 00:37] LABS: ESTIMATED GFR 73 mL/min (>60); TROPONIN I HIGH SENSITIVITY 17.9 pg/mL (<=60.3)
[2021-11-06] MEDS ORDERED: Pantoprazole 80 MG in Sodium Chloride 0.9% 100 ML IV SCH (02:30)
== END 2021-11-06 04:54 ==
LOC: JP.ED 20:39
DX: K92.2 Gastrointestinal hemorrhage, unspecified (principal); J43.9 Emphysema, unspecified; E78.00 Pure hypercholesterolemia, unspecified; M19.90 Unspecified osteoarthritis, unspecified site; Z87.891 Personal history of nicotine dependence; Z91.048 Other nonmedicinal substance allergy status; Z91.041 Radiographic dye allergy status; Z88.2 Allergy status to sulfonamides; Z88.8 Allergy status to other drugs, medicaments and biological substances; Z79.82 Long term (current) use of aspirin; Z79.899 Other long term (current) drug therapy; Z20.822 Contact with and (suspected) exposure to COVID-19
CPT/HCPCS: 36415; 74176; 80053; 82272; 84484; 85025; 85610; 85730; 86850; 86900; 86901; 93005; 96365; 99285; C9113; J3490; U0002

== ENCOUNTER 2024-01-04 08:08 | Day surgery (SDC) | payer MEDICARE, BC ==
[2024-01-04] MEDS ORDERED: Midazolam 1 MG/ML 2 ML SDV ONE (09:00)
[2024-01-04] MEDS ORDERED: fentaNYL 50 MCG/ML SDV ONE (09:00)
[2024-01-04] MEDS ORDERED: Propofol 200 MG/20 ML SDV ONE (09:00)
[2024-01-04] MEDS: Sodium Chloride 0.9% 1,000 ML IV SCH (09:29)
== END 2024-01-04 12:17 | disposition home or self-care (01) ==
LOC: JP.SDS 08:08
PROVIDERS: ATTEND Surgery
DX: Z12.11 Encounter for screening for malignant neoplasm of colon (principal); D12.2 Benign neoplasm of ascending colon; K57.30 Diverticulosis of large intestine without perforation or abscess without bleeding; Z85.038 Personal history of other malignant neoplasm of large intestine; J44.9 Chronic obstructive pulmonary disease, unspecified
CPT/HCPCS: 00811; 45385; 88305; J2250; J2704; J3010; J7030

== ENCOUNTER 2024-04-01 18:10 | Emergency (ER) | payer MEDICARE, BC ==
[2024-04-01] MEDS: Albuterol/Ipratropium 3.0-0.5 MG/3 ML Neb Soln NEB ONE (20:03)
[2024-04-01 20:06] LABS: BASOPHILS ABSOLUTE AUTO 0.05 K/uL (0.00-0.10); BASOPHILS PERCENT AUTO 0.3 % (0.1-1.3); EOSINOPHILS PERCENT AUTO 0.1 % (0.0-5.4); HEMOGLOBIN 14.2 g/dL (11.2-15.5); IMMATURE GRAN ABSOLUTE AUTO 0.08 K/uL (0.00-0.23); IMMATURE GRAN PERCENT AUTO 0.5 % (0.0-0.7); LYMPHOCYTES ABSOLUTE AUTO 1.59 K/uL (0.8-3.3); LYMPHOCYTES PERCENT AUTO 9.9 % (11.4-47.7); MEAN CORPUSCULAR HEMOGLOBIN 30.1 pg (31.6-35.5); MEAN CORPUSCULAR HGB CONC 33.8 g/dL (31.6-35.5); MONOCYTES ABSOLUTE AUTO 1.37 K/uL (0.20-0.90); MONOCYTES PERCENT AUTO 8.5 % (3.3-12.6); NEUTROPHILS ABSOLUTE AUTO 13.03 K/uL (1.0-7.6); NEUTROPHILS PERCENT AUTO 80.7 % (40.0-78.1); PLATELET COUNT,PLT 226 K/uL (130-375); RED BLOOD CELL COUNT 4.72 M/uL (3.77-5.24); WHITE BLOOD CELL COUNT,WBC 16.1 K/uL (3.2-11.0)
[2024-04-01 20:07] LABS: EOSINOPHILS ABSOLUTE AUTO 0.01 K/uL (0.00-0.40)
[2024-04-01 20:22] LABS: ANION GAP 10.8 mmol/L (5.0-14.0); C-REACTIVE PROTEIN 7.86 mg/dL (<0.50); CALCIUM 8.6 mg/dL (8.5-10.1); CREATININE 0.8 mg/dL (0.6-1.0); EST CRCL DRUG DOSING (CG) 39.92 mL/min; POTASSIUM,K 3.8 mmol/L (3.6-5.2)
== END 2024-04-01 21:16 | disposition home or self-care (01) ==
LOC: JP.ED 18:10
DX: J18.9 Pneumonia, unspecified organism (principal); I10 Essential (primary) hypertension; E78.00 Pure hypercholesterolemia, unspecified; K21.9 Gastro-esophageal reflux disease without esophagitis; E03.9 Hypothyroidism, unspecified; Z87.891 Personal history of nicotine dependence; Z79.899 Other long term (current) drug therapy; Z91.048 Other nonmedicinal substance allergy status; Z91.041 Radiographic dye allergy status; Z88.2 Allergy status to sulfonamides; Z88.8 Allergy status to other drugs, medicaments and biological substances
CPT/HCPCS: 36415; 71045; 71045-26; 80048; 85025; 86140; 87428-QW; 94640; 99284; J7620

== ENCOUNTER 2024-05-30 18:40 | Emergency (ER) | payer MEDICARE, BC ==
[2024-05-30] MEDS: Albuterol/Ipratropium 3.0-0.5 MG/3 ML Neb Soln NEB ONE (19:34)
== END 2024-05-30 20:30 | disposition home or self-care (01) ==
LOC: JP.ED 18:40
DX: J40 Bronchitis, not specified as acute or chronic (principal); J44.1 Chronic obstructive pulmonary disease with (acute) exacerbation; I10 Essential (primary) hypertension; E78.00 Pure hypercholesterolemia, unspecified; E03.9 Hypothyroidism, unspecified; Z79.890 Hormone replacement therapy; Z79.899 Other long term (current) drug therapy; Z87.891 Personal history of nicotine dependence
CPT/HCPCS: 71046; 71046-26; 87428-QW; 94640; 99284; 99285; A9270-GY

== ENCOUNTER 2024-11-30 17:12 | Emergency (ER) | payer MEDICARE, BC ==
[2024-11-30] MEDS ORDERED: Sodium Chloride 0.9% 10 ML Syringe FLUSH PRN (18:11)
[2024-11-30 18:26] LABS: BASOPHILS ABSOLUTE AUTO 0.06 K/uL (0.00-0.10); BASOPHILS PERCENT AUTO 0.6 % (0.1-1.3); EOSINOPHILS ABSOLUTE AUTO 0.03 K/uL (0.00-0.40); EOSINOPHILS PERCENT AUTO 0.3 % (0.0-5.4); IMMATURE GRAN ABSOLUTE AUTO 0.03 K/uL (0.00-0.23); IMMATURE GRAN PERCENT AUTO 0.3 % (0.0-0.7); LYMPHOCYTES ABSOLUTE AUTO 2.34 K/uL (0.8-3.3); LYMPHOCYTES PERCENT AUTO 25.2 % (11.4-47.7); MONOCYTES ABSOLUTE AUTO 0.83 K/uL (0.20-0.90); MONOCYTES PERCENT AUTO 8.9 % (3.3-12.6); NEUTROPHILS ABSOLUTE AUTO 6.01 K/uL (1.0-7.6); NEUTROPHILS PERCENT AUTO 64.7 % (40.0-78.1); PLATELET COUNT,PLT 226 K/uL (130-375); RED BLOOD CELL COUNT 4.76 M/uL (3.77-5.24); WHITE BLOOD CELL COUNT,WBC 9.3 K/uL (3.2-11.0)
[2024-11-30 18:47] LABS: A/G RATIO 1.0 (1.2-2.2); ALANINE AMINOTRANSFERASE,ALT 32 U/L (12-78); ASPARTATE AMNIOTRANSFERASE,AST 25 U/L (15-37); BILIRUBIN TOTAL 0.4 mg/dL (0.2-1.0); BLOOD UREA NITROGEN,BUN 14 mg/dL (7-18); CARBON DIOXIDE,CO2 28 mmol/L (21-32); CHLORIDE,CL 106 mmol/L (100-108); CREATININE 0.7 mg/dL (0.6-1.0); ESTIMATED GFR 84 mL/min (>60); GLUCOSE RANDOM 119 mg/dL (74-106); POTASSIUM,K 3.6 mmol/L (3.6-5.2); PROTEIN TOTAL,TP 7.0 g/dL (6.4-8.2); SODIUM,NA 142 mmol/L (140-148)
[2024-11-30 18:56] LABS: PRO B-TYPE NATRIUR PEPT,BNPPRO 189.0 pg/mL (5-450); TROPONIN I HIGH SENSITIVITY 6.8 pg/mL (<=60.3)
== END 2024-11-30 20:26 | disposition home or self-care (01) ==
LOC: JP.ED 17:12
DX: J69.0 Pneumonitis due to inhalation of food and vomit (principal); I10 Essential (primary) hypertension; E78.00 Pure hypercholesterolemia, unspecified; E03.9 Hypothyroidism, unspecified; J44.9 Chronic obstructive pulmonary disease, unspecified; K21.9 Gastro-esophageal reflux disease without esophagitis; Z79.890 Hormone replacement therapy; Z79.899 Other long term (current) drug therapy; Z88.2 Allergy status to sulfonamides; Z88.8 Allergy status to other drugs, medicaments and biological substances; Z91.041 Radiographic dye allergy status; R06.02 Shortness of breath
CPT/HCPCS: 36415; 71045; 71045-26; 80053; 83880; 84484; 85025; 93005; 93010; 99284; 99285